=== PATIENT | male | born 1950 | race Caucasian/White ===

== ENCOUNTER 2017-09-07 19:05 | Inpatient (IN) | payer MEDICARE, OTHER ==
[~2017-09-07] VITALS: Ht 177.8 cm; Wt 85.9 kg
[~2017-09-07 19:05] MED LIST: AC500T PO; ALLO300T2 PO; ALLOPURINOL PO; BISO1TAB3 PO; CHOL2000 PO; CPR500T PO; EZET10TA5 PO; FNST5T PO; FOLI1TAB7; HCTZ12.5T PO; HYDR50TA3 PO; KCL20TCR; MAGN400T6 PO; MULT-1029 PO; OXYC-12 PO; PANT40TA PO; POTA10CA43 PO; PRAS10TA6 PO; PRM25T PO; VYTORIN
--- OUTSIDE RECORDS SUMMARY | 2017-09-07 19:12 | XMS REPORT | Continuity of Care Document ---
Author Author [facility] Organization [facility] Address Unknown Phone Unavailable Allergies Medications Problems Procedures Results Encounters ACCT No. Visit Date/Time Discharge Status Pt. Type Provider Facility Loc./Unit Complaint [id number] 12/23/2013 08:40:00 2013 23:59:59 CLS Outpatient [id number] 12/20/2013 12:02:00 2013 23:59:59 CLS Outpatient [id number] 12/20/2013 10:13:00 2013 23:59:59 CLS Outpatient [id number] 11/02/2013 14:51:00 2013 13:30:00 DIS Inpatient [id number] 09/20/2013 08:17:00 2012 23:59:59 CLS Outpatient [id number] 08/26/2013 12:15:00 2012 14:49:00 DIS Outpatient [id number] 08/18/2013 16:04:00 2012 23:59:59 CLS Outpatient [id number] 06/02/2013 10:23:00 2012 23:59:59 CLS Outpatient
[2017-09-07] MEDS ORDERED: KETOROLAC 30 MG/ML VIAL IVP ONE (20:00)
[2017-09-07] MEDS ORDERED: fentaNYL INJECTION 100 MCG/2 ML AMP IVP ONE ×2 (20:00→20:30)
--- NOTE | 2017-09-07 20:01 | ED Lower Extremity ---
General Chief Complaint: Lower Extremity Stated Complaint: R FOOT INJ Nursing Triage Note: RIGHT ANKLE PAIN/SWELLING AFTER TRIPPING DOWN 1 STEP. Nursing Sepsis Screen: No Definite Risk Source: patient Exam Limitations: no limitations History of Present Illness Time seen by provider: 20:00 Initial Comments To ER with right ankle pain and swelling after tripping down one step at home. Foot everted Onset: just prior to arrival Severity: moderate Pain/Injury Location: right foot Method of Injury: fell Modifying Factors: Worse With Movement Allergies and Home Medications Allergies Coded Allergies: Tetracycline (Verified Allergy, Unknown, 09/03/09) Home Medications Acetaminophen 500 Mg Tablet, 1,000 MG PO Q4H PRN for PAIN, (Reported) TAKES 2 (500MG) TABLETS NEEDED FOR PAIN Allopurinol 300 Mg Tab, 300 MG PO DAILY, (Reported) Bisoprol/Hydrochlorothiazide 1 Tab Tablet, 1 TAB PO DAILY, (Reported) 5-6.25MG TABLET Cholecalciferol 2,000 Unit Capsule, 2,000 UNIT PO DAILY, (Reported) Ezetimibe 10 Mg Tablet, 10 MG PO HS, (Reported) Finasteride 5 Mg Tab, 5 MG PO DAILY, (Reported) Hydrochlorothiazide 50 Mg Tablet, 50 MG PO DAILY, (Reported) Magnesium Oxide 400 Mg Tablet, 400 MG PO DAILY, (Reported) Mu-Vits-Min Th/Lycopene/Lutein 1 Each Tablet, 1 TAB PO DAILY, (Reported) Pantoprazole Sodium 40 Mg Tablet.dr, 40 MG PO DAILY, (Reported) Potassium Chloride 10 Meq Capsule.sa, 20 MEQ PO DAILY, (Reported) TAKES 2 (10MEQ) CAPSUELS EVERY MORNING AND TAKES 1 (10MEQ) CAPSULE AT NIGHT Potassium Chloride 10 Meq Capsule.sa, 10 MEQ PO HS, (Reported) TAKES 2 (10MEQ) CAPSUELS EVERY MORNING AND TAKES 1 (10MEQ) CAPSULE AT NIGHT Prasugrel Hydrochloride 10 Mg Tablet, 10 MG PO DAILY, (Reported) Constitutional: see HPI EENTM: see HPI Respiratory: no symptoms reported Cardiovascular: no symptoms reported Genitourinary: no symptoms reported Musculoskeletal: no symptoms reported Skin: no symptoms reported Psychiatric/Neurological: No Symptoms Reported Past Xqczrgt-Clkjyz-Nohryo Hx Patient Social History Alcohol Use: Occasionally Uses Number of Drinks Today: 0 Alcohol Beverage of Choice: Scotch Recreational Drug Use: No Smoking Status: Never a Smoker 2nd Hand Smoke Exposure: No Recent Foreign Travel: No Contact w/Someone Who Travel: No Recent Infectious Disease Expo: No Recent Hopitalizations: No Immunizations Up To Date Tetanus Booster (TDap): Less than 5yrs Date of Pneumonia Vaccine: Nov 02, 2011 Seasonal Allergies Seasonal Allergies: No Surgeries History of Surgeries: Yes (STONE BASKET RETRIEVAL STONES, ABDOMINAL LESION) Surgeries: Coronary Stent Respiratory History of Respiratory Disorde: No Cardiovascular History of Cardiac Disorders: Yes (BBB, STENT X1) Cardiac Disorders: Hypertension Neurological History of Neurological Disord: No Reproductive System Hx Reproductive Disorders: No Genitourinary History of Genitourinary Disor: Yes Genitourinary Disorders: Benign Prostatic Hyperpl, Kidney Stones Gastrointestinal History of Gastrointestinal Di: Yes Gastrointestinal Disorders: Gastroesophageal Reflux Musculoskeletal History of Musculoskeletal Dis: Yes (HIP NERVE CAUSES TINGLING IN L LEG) Endocrine History of Endocrine Disorders: No HEENT History of HEENT Disorders: No Cancer 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) Psychosocial History of Psychiatric Problem: No Integumentary History of Skin or Integumenta: No Blood Transfusions History of Blood Disorders: No Physical Exam Vital Signs Vital Sign - Last 12Hours 09/07/17 19:51 Temp 98.7 Pulse 83 Resp 18 B/P (MAP) 161/77 Pulse Ox 95 O2 Delivery Room Air Capillary Refill : Less Than 3 Seconds General Appearance: WD/WN, no apparent distress HEENT: PERRL/EOMI, normal ENT inspection Neck: non-tender, full range of motion Respiratory: no respiratory distress, no accessory muscle use Gastrointestinal: non tender, soft Hips: bilateral hip non-tender, bilateral hip normal inspection, bilateral hip normal range of motion Legs: bilateral leg non-tender, bilateral leg normal inspection, bilateral leg normal range of motion Knees: bilateral knee non-tender, bilateral knee normal inspection, bilateral knee normal range of motion Ankles: right ankle pain, right ankle soft tissue tenderness Feet: bilateral foot non-tender, bilateral foot normal inspection, bilateral foot normal range of motion Neurologic/Psychiatric: alert, normal mood/affect, oriented x 3 Skin: normal color, warm/dry Comments He is able to wiggle his toes. The dorsalis pedis pulse is +2 in strength. He does have ecchymosis and deformity to the right ankle. There is no bleeding or evidence of an open fracture. Progress/Results/Core Measures Results/Orders Lab Results Laboratory Tests Test 09/07/17 19:58 Range/Units White Blood Count 12.9 H 4.3-11.0 10^3/uL Red Blood Count 5.49 4.35-5.85 10^6/uL Hemoglobin 15.0 13.3-17.7 G/DL Hematocrit 44 40-54 % Mean Corpuscular Volume 81 80-99 FL Mean Corpuscular Hemoglobin 27 25-34 PG Mean Corpuscular Hemoglobin Concent 34 32-36 G/DL Red Cell Distribution Width 14.5 10.0-14.5 % Platelet Count 298 130-400 10^3/uL Mean Platelet Volume 9.7 7.4-10.4 FL Neutrophils (%) (Auto) 60 42-75 % Lymphocytes (%) (Auto) 30 12-44 % Monocytes (%) (Auto) 8 0-12 % Eosinophils (%) (Auto) 1 0-10 % Basophils (%) (Auto) 1 0-10 % Neutrophils # (Auto) 7.8 1.8-7.8 X 10^3 Lymphocytes # (Auto) 3.9 1.0-4.0 X 10^3 Monocytes # (Auto) 1.1 H 0.0-1.0 X 10^3 Eosinophils # (Auto) 0.1 0.0-0.3 10^3/uL Basophils # (Auto) 0.1 0.0-0.1 10^3/uL Sodium Level 140 135-145 MMOL/L Potassium Level 3.1 L 3.6-5.0 MMOL/L Chloride Level 104 98-107 MMOL/L Carbon Dioxide Level 22 21-32 MMOL/L Anion Gap 14 5-14 MMOL/L Blood Urea Nitrogen 21 H 7-18 MG/DL Creatinine 0.93 0.60-1.30 MG/DL Estimat Glomerular Filtration Rate > 60 BUN/Creatinine Ratio 23 Glucose Level 119 H 70-105 MG/DL Calcium Level 9.7 8.5-10.1 MG/DL My Orders Orders - MERLE ORTIZ APRN Saline Lock/Iv-Start (09/07/17 19:59) Cbc With Automated Diff (09/07/17 19:59) Basic Metabolic Panel (09/07/17 19:59) Fentanyl Injection (Sublimaze Injection (09/07/17 20:00) Ketorolac Injection (Toradol Injection) (09/07/17 20:00) Ankle, Right, 3 Views (09/07/17 20:03) Medications Given in ED Current Medications Medications Dose Ordered Sig/Stefanie Route Start Time Stop Time Status Last Admin Dose Admin Fentanyl Citrate 50 mcg ONCE ONCE IVP 09/07/17 20:00 09/07/17 20:01 DC 09/07/17 20:13 50 MCG Ketorolac Tromethamine 30 mg ONCE ONCE IVP 09/07/17 20:00 09/07/17 20:01 DC 09/07/17 20:12 30 MG Vital Signs/I&O Vital Sign - Last 12Hours 09/07/17 19:51 Temp 98.7 Pulse 83 Resp 18 B/P (MAP) 161/77 Pulse Ox 95 O2 Delivery Room Air Blood Pressure Mean: 105 Diagnostic Imaging Diagonstic Imaging: CT Comments NAME: XAVIER SOLO [facility] REC#: [id number] PT STATUS: REG ER : 1950 PHYSICIAN: MERLE ORTIZ APRN ADMIT DATE: 09/07/17/ER Draft Date of Exam:09/07/17 ANKLE, RIGHT, 3 VIEWS INDICATION: Right ankle pain after falling on steps. TECHNIQUE: Three views of the right ankle. CORRELATION STUDY: None. FINDINGS: Predominantly obliquely oriented fracture of the distal fibular shaft. There is significant lateral displacement greater than the width of the bone and retraction along the fracture line. There is a transversely oriented fracture of the medial malleolus. The distal medial malleolus fracture is displaced significantly laterally. There is also what appears to be a nondisplaced vertically oriented fracture of the posterior distal tibia. There is lateral displacement of the talus in regards to the distal tibia of approximately 2 cm. Slight anterior positioning of the talus in regards to the distal tibia. Benign-appearing sclerosis of the distal tibia. Associated soft tissue swelling. IMPRESSION: Displaced trimalleolar ankle fracture dislocation. Associated soft tissue swelling. Dictated on workstation # [id number] Dict: 09/07/172011 Trans: 09/07/172021 [facility] [id number] Interpreted by: SALVADOR KWONG DO Electronically signed by: Departure Communication (Admissions) Time/Spoke to Admitting Phy: 20:50 Communication I did discuss the case with Dr. Barr. He agrees to admit the patient, I will reduce the ankle here in the emergency room, we will splint, admit for pain control and tentative plan for ORIF ankle tomorrow. Progress Notes 2050-I did do a conscious sedation using 20 mg of etomidate, traction was applied to the foot with apparent reduction. Foot was splinted using a posterior short leg and stirrup style splint. Postreduction x-rays to confirm reduction. Maintains brisk capillary refill in the toes after reduction. Impression Impression: Primary Impression: Fracture dislocation of right ankle Disposition: ADMITTED INPATIENT Condition: Improved Admissions Decision to Admit Reason: Admit from ER (General) Decision to Admit/Date: Sep 07, 2017 Time/Decision to Admit Time: 20:51 Departure-Patient Inst. Decision time for Depature: 20:12 Referrals: NOELLE DODSON MD (PCP/Family) Primary Care Physician MERLE ORTIZ APRN Sep 07, 2017 20:01
[2017-09-07 20:03] LABS: BASOPHILS # (AUTO) 0.1 10^3/uL (0.0-0.1); BASOPHILS % (AUTO) 1 % (0-10); EOSINOPHILS # (AUTO) 0.1 10^3/uL (0.0-0.3); EOSINOPHILS % (AUTO) 1 % (0-10); LYMPHOCYTES # (AUTO) 3.9 X 10^3 (1.0-4.0); LYMPHOCYTES % (AUTO) 30 % (12-44); MEAN CORPUSCULAR HEMOGLOBIN 27 PG (25-34); MEAN CORPUSCULAR HGB CONC 34 G/DL (32-36); MEAN CORPUSCULAR VOLUME 81 FL (80-99); MEAN PLATELET VOLUME 9.7 FL (7.4-10.4); MONOCYTES # (AUTO) 1.1 X 10^3 (0.0-1.0); MONOCYTES % (AUTO) 8 % (0-12); NEUTROPHILS # (AUTO) 7.8 X 10^3 (1.8-7.8); NEUTROPHILS % (AUTO) 60 % (42-75); PLATELET COUNT 298 10^3/uL (130-400); RED BLOOD COUNT 5.49 10^6/uL (4.35-5.85); RED CELL DISTRIBUTION WIDTH 14.5 % (10.0-14.5); WHITE BLOOD COUNT 12.9 10^3/uL (4.3-11.0)
[2017-09-07 20:17] LABS: ANION GAP 14 MMOL/L (5-14); BLOOD UREA NITROGEN 21 MG/DL (7-18); BUN/CREATININE RATIO 23; CALCIUM 9.7 MG/DL (8.5-10.1); CARBON DIOXIDE 22 MMOL/L (21-32); CHLORIDE 104 MMOL/L (98-107); CREATININE SERUM 0.93 MG/DL (0.60-1.30); GFR ESTIMATED > 60; GLUCOSE 119 MG/DL (70-105); POTASSIUM 3.1 MMOL/L (3.6-5.0); SODIUM 140 MMOL/L (135-145)
--- NOTE | 2017-09-07 20:22 | Diagnostic Imaging Report ---
INDICATION: Right ankle pain after falling on steps. TECHNIQUE: Three views of the right ankle. CORRELATION STUDY: None. FINDINGS: Predominantly obliquely oriented fracture of the distal fibular shaft. There is significant lateral displacement greater than the width of the bone and retraction along the fracture line. There is a transversely oriented fracture of the medial malleolus. The distal medial malleolus fracture is displaced significantly laterally. There is also what appears to be a nondisplaced vertically oriented fracture of the posterior distal tibia. There is lateral displacement of the talus in regards to the distal tibia of approximately 2 cm. Slight anterior positioning of the talus in regards to the distal tibia. Benign-appearing sclerosis of the distal tibia. Associated soft tissue swelling. IMPRESSION: Displaced trimalleolar ankle fracture dislocation. Associated soft tissue swelling. Dictated by: Dictated on workstation # [id number]
[2017-09-07] MEDS ORDERED: NS IV 500 ML 500 ML IV SCH (20:30)
[2017-09-07] MEDS ORDERED: ETOMIDATE IV SOLN 20 MG/10 ML VIAL IV ONE (20:30)
[2017-09-07] MEDS ORDERED: ONDANSETRON 4 MG/2 ML (SDV) Z0FRAN ONE (20:47)
[2017-09-07] MEDS ORDERED: ONDANSETRON 4 MG/2 ML (SDV) Z0FRAN IVP ONE (21:00)
--- NOTE | 2017-09-07 21:02 | Diagnostic Imaging Report ---
INDICATION: Fracture dislocation, postreduction TECHNIQUE: Three views of the right ankle 8:49 PM CORRELATION STUDY: 09/07/2017 FINDINGS: Cast material has been placed. Trimalleolar fracture is again demonstrated. However, alignment is improved on post reduction imaging. The tibiotalar relationship also appears to be improved. Soft tissue swelling is present. IMPRESSION: Trimalleolar fracture present. Alignment significantly improved on post reduction imaging. Dictated by: Dictated on workstation # [id number]
[2017-09-07] MEDS ORDERED: ONDANSETRON 4 MG/2 ML (SDV) Z0FRAN IV PRN (22:00)
[2017-09-07] MEDS: NS W/KCL 40 MEQ/L 1,000 ML IV SCH (22:18)
[2017-09-08 00:44] VITALS: BP 123/69
[2017-09-08] MEDS: fentaNYL INJECTION 100 MCG/2 ML AMP IV PRN ×4 (02:01→16:39)
[2017-09-08 04:10] VITALS: BP 126/66
[2017-09-08] MEDS: NS W/KCL 40 MEQ/L 1,000 ML IV SCH (06:33)
[2017-09-08] MEDS ORDERED: CATHETER FLUSH 10 ML SYR IV PRN (07:00)
[2017-09-08] MEDS ORDERED: INFLUENZA TRIvalent 2017-2018 0.5 ML/45 MCG SYR IM ONE (07:00)
--- NOTE | 2017-09-08 07:12 | History & Physicial ---
History of Present Illness History of Present Illness Reason for visit/HPI Right ankle injury Mr. Grayson is a 67 y/o white male who reportedly tripped, at home, on 2 steps. He states that his right foot everted and he immediately noted pain and deformity. He was brought to [facility] ER, where multiple x-rays were taken. A displaced trimalleolar fracture was identified. Patient underwent reduction with sedation, and was placed in a splint. Patient was admitted for Ortho evaluation and treatment. Date of Admission Sep 07, 2017 at 20:23 Date Seen by Provider: Sep 08, 2017 Time Seen by Provider: 07:07 I consulted on this patient on 09/08/17 07:07 Attending Physician Alex Barr MD Admitting Physician Giovanni Mandel MD Consult Allergies and Home Medications Allergies Coded Allergies: tetracycline (Verified Allergy, Unknown, 09/03/09) Home Medications Acetaminophen 500 Mg Tablet, 1,000 MG PO Q4H PRN for PAIN, (Reported) TAKES 2 (500MG) TABLETS NEEDED FOR PAIN Allopurinol 300 Mg Tab, 300 MG PO DAILY, (Reported) Bisoprol/Hydrochlorothiazide 1 Tab Tablet, 1 TAB PO DAILY, (Reported) 5-6.25MG TABLET Cholecalciferol 2,000 Unit Capsule, 2,000 UNIT PO DAILY, (Reported) Ezetimibe 10 Mg Tablet, 10 MG PO HS, (Reported) Finasteride 5 Mg Tab, 5 MG PO DAILY, (Reported) Hydrochlorothiazide 50 Mg Tablet, 50 MG PO DAILY, (Reported) Magnesium Oxide 400 Mg Tablet, 400 MG PO DAILY, (Reported) Mu-Vits-Min Th/Lycopene/Lutein 1 Each Tablet, 1 TAB PO DAILY, (Reported) Pantoprazole Sodium 40 Mg Tablet.dr, 40 MG PO DAILY, (Reported) Potassium Chloride 10 Meq Capsule.sa, 20 MEQ PO DAILY, (Reported) TAKES 2 (10MEQ) CAPSUELS EVERY MORNING AND TAKES 1 (10MEQ) CAPSULE AT NIGHT Potassium Chloride 10 Meq Capsule.sa, 10 MEQ PO HS, (Reported) TAKES 2 (10MEQ) CAPSUELS EVERY MORNING AND TAKES 1 (10MEQ) CAPSULE AT NIGHT Prasugrel Hydrochloride 10 Mg Tablet, 10 MG PO DAILY, (Reported) Past Kiuzbma-Uefpav-Hcscvi Hx Patient Social History Marrital Status: single Employed/Student: employed Alcohol Use: Occasionally Uses Number of Drinks Today: EE Alcohol Beverage of Choice: Scotch Recreational Drug Use: No Smoking Status: Never a Smoker 2nd Hand Smoke Exposure: No Physical Abuse Screen: No Sexual Abuse: No Recent Foreign Travel: No Contact w/other who traveled: No Recent Hopitalizations: No Recent Infectious Disease Expo: No Immunizations Up To Date Tetanus Booster (TDap): Less than 5yrs Date of Pneumonia Vaccine: Nov 02, 2011 Seasonal Allergies Seasonal Allergies: No Surgeries Yes (STONE BASKET RETRIEVAL STONES, ABDOMINAL LESION) Coronary Stent Respiratory No Currently Using CPAP: No Currently Using BIPAP: No Cardiovascular Yes (BBB, STENT X1) Hypertension Neurological No Reproductive System Hx Reproductive Disorders: No Genitourinary Yes Benign Prostatic Hyperpl, Kidney Stones Gastrointestinal Yes Gastroesophageal Reflux Musculoskeletal No Endocrine History of Endocrine Disorders: No HEENT History of HEENT Disorders: No Cancer No Psychosocial History of Psychiatric Problem: No Integumentary History of Skin or Integumenta: No Blood Transfusions History of Blood Disorders: No Constitutional: no symptoms reported EENTM: no symptoms reported Respiratory: No cough, No hemoptysis, No short of breath Cardiovascular: No chest pain, Hx of Intervention Gastrointestinal: No nausea, No vomiting Musculoskeletal: see HPI Skin: see HPI Psychiatric/Neurological: No Symptoms Reported Physical Exam Vital Signs Vital Sign - Last 12Hours 09/07/17 19:51 Temp 98.7 Pulse 83 Resp 18 B/P (MAP) 161/77 Pulse Ox 95 O2 Delivery Room Air Capillary Refill : Less Than 3 SecondsLess Than 3 Seconds General Appearance: No Apparent Distress, WD/WN Eyes: Bilateral Eye Normal Inspection, Bilateral Eye PERRL Neck: Full Range of Motion Respiratory: No Accessory Muscle Use, No Respiratory Distress Cardiovascular: No Edema, Normal Peripheral Pulses Gastrointestinal: Non Tender, Soft Rectal: Deferred Back: No Decreased Range of Motion Extremity: Other (Right ankle splinted. Moves toes. 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
[2017-09-08 08:00] VITALS: BP 131/69
--- NOTE | 2017-09-08 08:00 | Progress Note-Pre Operative ---
Pre-Operative Progress Note H&P Reviewed The H&P was reviewed, patient examined and no changes noted. Date Seen by Provider: Sep 08, 2017 Time Seen by Provider: 08:00 Date H&P Reviewed: Sep 08, 2017 Time H&P Reviewed: 08:00 Pre-Operative Diagnosis: Right Closed TriMalleolar Ankle fracture CASEY HATFIELD MD Sep 08, 2017 8:00 am
[2017-09-08] MEDS ORDERED: PRAS10TA6 PO (09:09)
[2017-09-08] MEDS ORDERED: ALLO300T2 PO (09:09)
[2017-09-08] MEDS ORDERED: ACET-168 PO (09:09)
[2017-09-08] MEDS ORDERED: POTA10CA43 PO (09:09)
[2017-09-08] MEDS ORDERED: BISO1TAB3 PO (09:09)
[2017-09-08] MEDS ORDERED: MAGN400T6 PO (09:09)
[2017-09-08] MEDS ORDERED: FINA5TAB6 PO (09:09)
[2017-09-08] MEDS ORDERED: MULT-1029 PO (09:09)
[2017-09-08] MEDS ORDERED: TR1C15 TOP (09:09)
[2017-09-08] MEDS ORDERED: CHOL20003 PO (09:09)
[2017-09-08] MEDS ORDERED: PANT40TA3 PO (09:09)
[2017-09-08] MEDS ORDERED: EZET1TAB65 PO (09:09)
[2017-09-08] MEDS ORDERED: HYDR25TA4 PO (09:24)
[2017-09-08] MEDS ORDERED: HYDR50TA3 PO (09:24)
[2017-09-08] MEDS ORDERED: BUP/EPI 0.5% 1:200,000 (MARCAINE) 10ML VIAL IJ ONE (11:13)
[2017-09-08] MEDS ORDERED: ceFAZolin 2 GM/50 ML NS 50 ML IV ONE (11:30)
[2017-09-08] MEDS ORDERED: DEXAMETHASONE 10 MG/ML (DECADRON) 1 ML VIAL ONE (11:34)
[2017-09-08] MEDS ORDERED: fentaNYL INJECTION 250 MCG/5 ML AMP ONE (11:34)
[2017-09-08] MEDS ORDERED: LIDOCAINE PF 2% 5 ML (XYLOCAINE) VIAL ONE (11:34)
[2017-09-08] MEDS ORDERED: MIDAZOLAM 2 MG/2 ML (VERSED) VIAL ONE (11:34)
[2017-09-08] MEDS ORDERED: proPOfol 200 MG/20 ML (DIPRIVAN) VIAL IV ONE (11:34)
[2017-09-08] MEDS ORDERED: ONDANSETRON 4 MG/2 ML (SDV) Z0FRAN ONE ×2 (11:34→13:01)
[2017-09-08] MEDS: LACTATED RINGERS 1,000 ML IV SCH ×2 (11:55→13:00)
[2017-09-08] MEDS ORDERED: ONDANSETRON 4 MG/2 ML (SDV) Z0FRAN IV PRN (12:30)
[2017-09-08] MEDS ORDERED: APAP 300 MG/CODEINE 30 MG (TYLENOL #3) TAB PO PRN (12:30)
[2017-09-08] MEDS ORDERED: FAMOTIDINE 20MG/2ML IV (PEPCID) ONE (12:40)
[2017-09-08] MEDS ORDERED: PROPOFOL INJECTION 100 ML IV ONE (12:55)
--- NOTE | 2017-09-08 13:27 | Progress Note-Post Operative ---
Post-Operative Progess Note Surgeon (s)/Conventions Reservationist (s) Surgeon CASEY HATFIELD MD Conventions Reservationist: KEEGAN De Santiago Pre-Operative Diagnosis Right Closed TriMalleolar Ankle fracture Post-Operative Diagnosis Same Procedure & Operative Findings Date of Procedure 09/08/17 Procedure Performed/Findings ORIF Right Trimalleolar Ankle fracture, w/o posterior lip Anesthesia Type GETA Estimated Blood Loss Estimated blood loss (mL): 50 Specimens/Packing Specimens Removed none CASEY HATFIELD MD Sep 08, 2017 1:27 pm
[2017-09-08] MEDS ORDERED: ONDANSETRON 4 MG/2 ML (SDV) Z0FRAN IVP PRN (13:45)
[2017-09-08] MEDS: morphine INJ 10 MG/ML 1ML (SYR OR VIAL) IVP PRN ×3 (14:00→14:08)
--- NOTE | 2017-09-08 14:30 | Physical Therapy Evaluation ---
PT Evaluation-General Medical Diagnosis Admission Date Sep 07, 2017 at 20:23 Medical Diagnosis: right trimalleolar fracture/dislocation Onset Date: Sep 07, 2017 Therapy Diagnosis Therapy Diagnosis: debility Height/Weight Height (Feet): 5 Height (Inches): 10.00 Weight (Pounds): 189 Weight (Ounces): 6.0 Precautions Precautions/Isolations: Standard Precautions Weight Bear Status Right Lower Extremity: Right Non Weight Bearing Left Lower Extremity: Left Full Weight Bearing Referral Physician: Cortney Reason for Referral: Evaluation/Treatment Medical History Pertinent Medical History: GERD, HTN Additional Medical History recurrent sarcoma Current History tripped and fell down 1 step resulting in injury Reviewed History: Yes Social History Home: Apartment Current Living Status: Alone Entry Into Home: Stairs With Railing Prior/Core FIM Prior Level of Function Functional Evans Measure 0=Not Assessed/NA 4=Minimal Assistance 1=Total Assistance 5=Supervision or Setup 2=Maximal Assistance 6=Modified Evans 3=Moderate Assistance 7=Complete Evans Bed Mobility: 7 Transfers (B,C,W/C) (FIM): 7 Gait: 7 Locomotion: 7 PT Evaluation-Current Transfers Functional Evans Measure 0=Not Assessed/NA 4=Minimal Assistance 1=Total Assistance 5=Supervision or Setup 2=Maximal Assistance 6=Modified Evans 3=Moderate Assistance 7=Complete Evans SLADE RAHMAN PT Sep 08, 2017 14:30
--- NOTE | 2017-09-08 14:36 | Diagnostic Imaging Report ---
EXAMINATION: Three views of the right ankle intraoperative views. INDICATION: Internal fixation of distal tibial and fibular fractures. FLUOROSCOPIC TIME: The fluoroscopy time provided to the OR was 18 seconds. IMPRESSION: Plate and screw fixation of the distal fibula and screw fixation of the medial malleolus fractures are seen in good alignment. Dictated by: Dictated on workstation # [id number]
[2017-09-08 14:54] VITALS: BP 142/74
[2017-09-08] MEDS: NS IV 1000 ML 1,000 ML IV SCH (14:55)
--- NOTE | 2017-09-08 15:22 | Physical Therapy Progress Note ---
Therapy Progress Note Patient just returned to room from surgery and is too sedated and unsafe to participate with PT at this time. PT will evaluate patient in SLADE Klein PT Sep 08, 2017 15:21
[2017-09-08 16:08] VITALS: BP 156/81
[2017-09-08] MEDS: HYDROcodone/APAP 5 MG/325 MG (LORTAB) TAB PO PRN (17:11)
[2017-09-08 20:00] VITALS: BP 143/73
[2017-09-08] MEDS: ceFAZolin 2 GM/50 ML NS 50 ML IV SCH (20:55)
[2017-09-08] MEDS: DOCUSATE SODIUM 100 MG (COLACE) CAP PO SCH (20:55)
[2017-09-09] VITALS (7 sets, daily range): BP systolic 126–156; BP diastolic 63–86
--- NOTE | 2017-09-09 01:18 | OPERATIVE REPORT ---
DATE OF SERVICE: 09/08/2017 PREOPERATIVE DIAGNOSIS: Right closed trimalleolar ankle fracture. POSTOPERATIVE DIAGNOSIS: Right closed trimalleolar ankle fracture. PROCEDURE PERFORMED: Open reduction internal fixation of trimalleolar ankle fracture without fixation of the posterior malleolus. DATE AND TIME OF SURGERY: Please see anesthesia record. IMPLANTS USED: Synthes small fragments and cannulated screws. SURGEON: Casey Barr MD API DEVELOPER: BALTA De Santiago. ROLE OF COMMUNICATIONS AND SIGNALS SUPERVISOR: Aid in retraction of the procedure, aid in implantation, instrumentation and wound closure. ANESTHESIA: General endotracheal. ESTIMATED BLOOD LOSS: Minimal. INTRAVENOUS FLUIDS: Please see anesthesia record. ANTIBIOTICS: Ancef. COMPLICATIONS: None. TOURNIQUET TIME: 45 minutes. INDICATION FOR PROCEDURE: The patient is a 67-year-old male, fell yesterday sustaining a trimalleolar ankle fracture. Risks, benefits, alternatives discussed and he elected to proceed with operative intervention. DESCRIPTION OF PROCEDURE: The patient was taken to the preoperative holding area and brought back to the operative suite. After adequate induction of general anesthesia, preoperative antibiotics, placed supine on the OR table. The ankle was prepped and draped in standard lateral approach. The distal fibula was carried out. Reduction was achieved, it was held with a bone clamp. An 8-hole 1/3 tubular plate was affixed to the distal fibula with great reduction achieved and maintained. Syndesmosis was stable. Small incision was made over the medial malleolus. It was reduced anatomically and two guidewires were placed for the cannulated screws and then two 4-0, 48 mm partially threaded screws were placed across the medial malleolus holding it anatomically as well. Once final imaging was obtained of the fracture, it was reduced anatomically. Wounds were irrigated, closed in layers. The patient transferred to recovery room in stable condition and tolerated the procedure well. Job ID: [id number] DocumentID: [id number] Dictated Date: 09/08/2017 13:26:20 Switchboard Operator Helper Date: 09/09/2017 01:17:17 Dictated By: CASEY BARR MD
[2017-09-09] MEDS: NS IV 1000 ML 1,000 ML IV SCH ×4 (01:34→23:09)
[2017-09-09] MEDS: ceFAZolin 2 GM/50 ML NS 50 ML IV SCH ×2 (04:16→12:24)
[2017-09-09 06:29] LABS: BASOPHILS % (AUTO) 0 % (0-10); EOSINOPHILS % (AUTO) 0 % (0-10); LYMPHOCYTES # (AUTO) 1.4 X 10^3 (1.0-4.0); LYMPHOCYTES % (AUTO) 12 % (12-44); MEAN CORPUSCULAR HEMOGLOBIN 27 PG (25-34); MEAN CORPUSCULAR HGB CONC 33 G/DL (32-36); MEAN CORPUSCULAR VOLUME 82 FL (80-99); MEAN PLATELET VOLUME 9.8 FL (7.4-10.4); MONOCYTES # (AUTO) 1.1 X 10^3 (0.0-1.0); MONOCYTES % (AUTO) 10 % (0-12); NEUTROPHILS # (AUTO) 8.6 X 10^3 (1.8-7.8); NEUTROPHILS % (AUTO) 78 % (42-75); PLATELET COUNT 212 10^3/uL (130-400); RED BLOOD COUNT 4.21 10^6/uL (4.35-5.85); RED CELL DISTRIBUTION WIDTH 14.3 % (10.0-14.5); WHITE BLOOD COUNT 11.1 10^3/uL (4.3-11.0)
[2017-09-09] MEDS: DOCUSATE SODIUM 100 MG (COLACE) CAP PO SCH ×2 (09:06→20:56)
--- NOTE | 2017-09-09 09:30 | Consultation ---
History of Present Illness History of Present Illness Patient Consulted On(colten/time) 09/09/17 09:16 Date Seen by Provider: Sep 09, 2017 Time Seen by Provider: 07:45 History of Present Illness This is a 67 year old male who was seen with Dr. Lira. This gentleman is known to us. He reports that on Friday evening 09/07/17 he was walking out of his house going down approx. 2 steps when he fell developing pain and swelling. He was brought to [facility] ER when he was found to have a fracture of the right ankle and underwent surgery yesterday to repair the fracture. He reports that last night he had a BM and also had some red blood in his stool. This gentleman had a colonoscopy performed by us 2 weeks ago and was found to have chronic stage 2-3 external and internal hemorrhoids as well as a rectal polyp which was benign. He does have a history of stents and is on anticoagulation at home. He reports that after his colonoscopy he was off his anticoagulation for a week and the bleeding stopped, however he restarted it one week ago and reports that on Friday before his accident he did have an episode of bright red bleeding. He has doing a high fiber diet at home as well as increasing his fluids. He reports that he has not had a BM since last night and reports that otherwise he is doing well. He says that he has not had to strain to have a BM. He denies any N/V, abdominal pain, diarrhea/constipation, fever/chills. He reports that he has not had much to eat but has not been real hungry. Allergies and Home Medications Allergies Coded Allergies: tetracycline (Verified Allergy, Unknown, 09/03/09) Home Medications Acetaminophen 500 Mg Tablet, 1,000 MG PO Q4H PRN for PAIN-MILD, (Reported) TAKES 2 (500MG) TABLETS Allopurinol 300 Mg Tablet, 300 MG PO DAILY, (Reported) Bisoprolol Fumarate/Hctz 1 Each Tablet, 1 TAB PO DAILY, (Reported) Cholecalciferol (Vitamin D3) 2,000 Unit Capsule, 2,000 UNIT PO DAILY, (Reported) Ezetimibe/Simvastatin 1 Each Tablet, 1 TAB PO HS, (Reported) Finasteride 5 Mg Tablet, 5 MG PO MoWeFr, (Reported) Hydrochlorothiazide 25 Mg Tablet, 25 MG PO DAILY, (Reported) Magnesium Oxide 400 Mg Tablet, 400 MG PO DAILY, (Reported) Multivit-Min/FA/Lycopene/Lut 1 Each Tablet, 1 TAB PO DAILY, (Reported) Pantoprazole Sodium 40 Mg Tablet.dr, 40 MG PO DAILY, (Reported) Potassium Chloride 10 Meq Capsule.er, 20 MEQ PO BID, (Reported) TAKES 2 (10MEQ) CAPSULES Prasugrel HCl 10 Mg Tablet, 10 MG PO DAILY, (Reported) Triamcinolone Acet 15 Gm Cr, TOP BID, (Reported) Past Qgwvkbn-Wiowfj-Ivgmqt Hx Patient Social History Alcohol Use: Occasionally Uses Number of Drinks Today: EE Alcohol Beverage of Choice: Scotch Recreational Drug Use: No Smoking Status: Never a Smoker 2nd Hand Smoke Exposure: No Recent Foreign Travel: No Contact w/Someone Who Travel: No Recent Infectious Disease Expo: No Recent Hopitalizations: No Immunizations Up To Date Tetanus Booster (TDap): Less than 5yrs Date of Pneumonia Vaccine: Nov 02, 2011 Seasonal Allergies Seasonal Allergies: No Surgeries History of Surgeries: Yes (STONE BASKET RETRIEVAL STONES, ABDOMINAL LESION) Surgeries: Coronary Stent Respiratory History of Respiratory Disorde: No Currently Using CPAP: No Currently Using BIPAP: No Cardiovascular History of Cardiac Disorders: Yes (BBB, STENT X1) Cardiac Disorders: Hypertension Neurological History of Neurological Disord: No Reproductive System Hx Reproductive Disorders: No Genitourinary History of Genitourinary Disor: Yes Genitourinary Disorders: Benign Prostatic Hyperpl, Kidney Stones Gastrointestinal History of Gastrointestinal Di: Yes Gastrointestinal Disorders: Gastroesophageal Reflux Musculoskeletal History of Musculoskeletal Dis: No Endocrine History of Endocrine Disorders: No HEENT History of HEENT Disorders: No Cancer History of Cancer: No Psychosocial History of Psychiatric Problem: No Integumentary History of Skin or Integumenta: No Blood Transfusions History of Blood Disorders: No Review of Systems-General Constitutional: no symptoms reported EENTM: no symptoms reported Respiratory: no symptoms reported Gastrointestinal: see HPI Genitourinary: no symptoms reported Musculoskeletal: other (Right ankle fracture but only reports minimal discomfort.) Skin: no symptoms reported Psychiatric/Neurological: No Symptoms Reported Physical Exam-General Problems Physical Exam Vital Signs Vital Sign - Last 12Hours 09/07/17 19:51 Temp 98.7 Pulse 83 Resp 18 B/P (MAP) 161/77 Pulse Ox 95 O2 Delivery Room Air Capillary Refill : Less Than 3 SecondsLess Than 3 Seconds General Appearance: WD/WN, no apparent distress HEENT: PERRL/EOMI Neck: non-tender, full range of motion, supple, normal inspection Respiratory: chest non-tender, lungs clear, normal breath sounds, no respiratory distress, no accessory muscle use Cardiovascular: normal peripheral pulses, regular rate, rhythm, no edema Gastrointestinal: normal bowel sounds, non tender, soft Back: normal inspection, no CVA tenderness, no vertebral tenderness Extremities: normal range of motion, no calf tenderness, normal capillary refill, other (Right lower extremity boot in place.) Neurologic/Psychiatric: alert, normal mood/affect, oriented x 3 Assessment/Plan Assessment/Plan Admission Diagnosis/Plan A 67 year old male with a Right closed trimalleolar ankle fracture who is S/P open reduction internal fixation of trimalleolar ankle fracture without fixation of the posterior malleolus, as well an episode of rectal bleeding most likely hemorrhoidal bleed. Hgb 11.9. Will continue with conservative medical management with stool softners as well as fluids to promote soft stools. Will monitor CBC and recheck tomorrow AM. Once patient is discharged will have patient resume high fiber diet and 64 ounces of fluids daily. It was explained to patient that we don't feel like his hemorrhoids are severe enough for surgical intervention. Clinical Quality Measures DVT/VTE Risk/Contraindication: Risk Factor Score Per Nursin RFS Level Per Nursing on Admit: 4+=Very High Copy Copies To 1: ADRY LIRA MD, DUSTIN L APRN Sep 09, 2017 9:30 am
--- NOTE | 2017-09-09 10:07 | Physical Therapy Evaluation ---
PT Evaluation-General Medical Diagnosis Admission Date Sep 07, 2017 at 20:23 Medical Diagnosis: right trimalleolar fracture/dislocation Onset Date: Sep 07, 2017 Therapy Diagnosis Therapy Diagnosis: ROM, strength, debility Height/Weight Height (Feet): 5 Height (Inches): 10.00 Weight (Pounds): 189 Weight (Ounces): 6.0 Precautions Precautions/Isolations: Fall Prevention, Standard Precautions Weight Bear Status Right Lower Extremity: Right Non Weight Bearing Left Lower Extremity: Left Full Weight Bearing Referral Physician: Cortney Reason for Referral: Evaluation/Treatment Medical History Pertinent Medical History: GERD, HTN Reviewed History: Yes Social History Home: Apartment Current Living Status: Alone Entry Into Home: Stairs With Railing PT Steps Into Home: 2 Prior/Core FIM Prior Level of Function Functional [place] Measure 0=Not Assessed/NA 4=Minimal Assistance 1=Total Assistance 5=Supervision or Setup 2=Maximal Assistance 6=Modified [place] 3=Moderate Assistance 7=Complete [place] Bed Mobility: 7 Transfers (B,C,W/C) (FIM): 7 Gait: 7 Locomotion: 7 PT Evaluation-Current Subjective Patient states he is doing alright today and that the ankle pain has not been too bad since the surgery. Pain Numeric Pain Scale: 5-Moderate Pain Location: Right Location Body Site: Ankle Pt/Family Goals Patient wishes to be able to return home in a safe manner. Objective Patient Orientation: Normal For Age Problem Solving: Good Attachments: IV ROM/Strength ROM Upper Extremities WNL ROM Lower Extremities WNL Strength Upper Extremities WNL Strength Lower Extremities L LE- WNL R LE- unable to test Integumentary/Posture Integumentary intact Bowel Incontinence: No Bladder Incontinence: No Neuromuscular (Tone, Coordination, Reflexes) WNL Sensory Vision: Functional Hearing: Functional Hand Dominance: Right Sensation Right Upper Extremit: Intact Sensation Left Upper Extremity: Intact Sensation Right Lower Extremit: Intact Sensation Left Lower Extremity: Intact Transfers Functional [place] Measure 0=Not Assessed/NA 4=Minimal Assistance 1=Total Assistance 5=Supervision or Setup 2=Maximal Assistance 6=Modified [place] 3=Moderate Assistance 7=Complete [place] Transfers (B, C, W/C) (FIM): 5 Scootin Rollin Supine to/from Sit: 5 Sit to/from Stand: 5 Patient can perform all observed transfers with SBA from PT. Gait Mode of Locomotion: Walk Anticipated Mode of Locomotion: Walk Gait (FIM): 4 Distance: 160' Gait Level of Assist: 4 Gait Persons Needed: 1 Gait Assistive Device: FWW Comments/Gait Description Patient walked with FWW and rolling scooter while non WB on R LE. PT was CGA due to unsteady gait while only bearing weight on L LE. Balance Sitting Static: Normal Sitting Dynamic: Normal Standing Static: Normal Standing Dynamic: Normal Assessment/Needs Patient is non WB for the foreseeable future on R LE. PT will work on gait training and strengthening of other extremities to provide more safe ambulation while patient is non WB on R LE. Rehab Potential: Good Equipment Needs FWW, crutches, and/or rolling scooter PT Correction Goals Correction Goals PT Correction Goals Time Frame: Sep 16, 2017 Transfers (B,C,W/C) (FIM): 6 Gait (FIM): 6 Distance: >300' Gait Level of Assist: 6 Gait Assistive Device: FWW, Crutches PT Plan Problem List Problem List: Activity Tolerance, Functional Strength, Safety, Balance, Gait Treatment/Plan Treatment Plan: Continue Plan of Care Treatment Plan: Functional Activity Parul, Functional Strength, Gait, Therapeutic Exercise Treatment Duration: Sep 16, 2017 Frequency: 11 times per week Estimated Hrs Per Day: .5 hour per day Patient and/or Family Agrees t: Yes Safety Risks/Education Patient Education: Gait Training, Safety Issues Teaching Recipient: Patient, Family Teaching Methods: Demonstration, Discussion Response to Teaching: Verbalize Understanding, Return Demonstration Discharge Recommendations Therapy D/C Recommendations: Home Independently Equpiment Recommendations-D/C: Front Wheeled Walker Time/GCodes Time In: 901 Time Out: 933 Total Billed Treatment Time: 32 Total Billed Treatment 1 visit EVM 15 min GT 17 min SLADE RAHMAN PT Sep 09, 2017 10:07
[2017-09-09] MEDS: HYDROcodone/APAP 5 MG/325 MG (LORTAB) TAB PO PRN ×2 (13:24→18:59)
--- NOTE | 2017-09-09 13:37 | Physical Therapy Daily Note ---
PT Daily Note-Current Subjective Patient is on the commode upon PT entering the room. Patient toilets and agrees to PT. He states his ankle is feeling okay this p.m. Pain Numeric Pain Scale: 5-Moderate Pain Location: Right Location Body Site: Ankle Appearance Patient appears in good health. He is left at edge of bed with phone and call light in reach. Mental Status Patient Orientation: Normal For Age Attachments: IV Transfers Functional [place] Measure 0=Not Assessed/NA 4=Minimal Assistance 1=Total Assistance 5=Supervision or Setup 2=Maximal Assistance 6=Modified [place] 3=Moderate Assistance 7=Complete IndependenceIRFPAI Quality Coding Scale 6 Independent with activity with or without an assistive device 5 Patient requires set up or clean up by helper. Patient completes activity by themselves 4 Supervision or touching assist (CGA). [place] provide cues , steadying assist 3 The helper provides less than half the effort to complete the activity 2 The helper provides more than half the effort to complete the activity 1 Dependent. The helper does all the effort to complete an activity 7 Patient refused to complete or attempt activity 9 The patient did not perform the activity before the current illness or injury 88 Not attempted due to Medical conditions or safety concerns Transfers (B, C, W/C) (FIM): 5 Sit to/from Stand: 5 Patient is SBA for sit to/from stand. Patient WB heavily through L LE as his R LE is NWB. Weight Bearing Right Lower Extremity: Right Non Weight Bearing Left Lower Extremity: Left Full Weight Bearing Gait Training Gait (FIM): 5 Distance: 200' Gait Level of Assist: 5 Gait Persons Needed: 1 Gait Assistive Device: FWW Patient walks with FWW. R LE is NWB. Patient is noticeably fatigued in L LE and slightly SOB after walking due to NWB status of R LE. Assessment Current Status: Good Progress Patient has good tolerance for gait and is learning how to more efficiently use assistive device. PT will continue to work on gait training and strengthening to improve ambulation with NWB R LE. PT Medical Liaison Goals Medical Liaison Goals PT Medical Liaison Goals Time Frame: Sep 16, 2017 Transfers (B,C,W/C) (FIM): 6 Gait (FIM): 6 Distance: >300' Gait Level of Assist: 6 Gait Assistive Device: FWW, Crutches PT Plan Problem List Problem List: Activity Tolerance, Functional Strength, Safety, Balance, Gait Treatment/Plan Treatment Plan: Continue Plan of Care Treatment Plan: Functional Activity Parul, Functional Strength, Gait, Safety, Therapeutic Exercise Treatment Duration: Sep 16, 2017 Frequency: 11 times per week Estimated Hrs Per Day: .5 hour per day Patient and/or Family Agrees t: Yes Time/GCodes Time In: 1255 Time Out: 1315 Total Billed Treatment Time: 20 Total Billed Treatment 1 visit GT 20 min SLADE RAHMAN PT Sep 09, 2017 13:37
--- NOTE | 2017-09-09 13:56 | Consultation-Hospitalist ---
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 He was walking down the stairs at his home on the night of 09/07. He had a misstep and everted his right foot. This caused him great pain and he was not able to walk. He called his brother who came over and loaded him up in the vehicle and drove him to the emergency room. He was found to have a trimalleolar fracture dislocation on the right. This was surgically repaired on 09/08. He reports he continues to have pain. He is concerned about his ability to manage as he lives alone. Source: patient Date Seen 09/09/17 Attending Physician Alex Barr MD PCP Giovanni Mandel MD Referring Physician Date of Admission Sep 07, 2017 at 20:23 Home Medications & Allergies Home Medications Reviewed patient Home Medication Reconciliation Form Allergies Allergies Coded Allergies tetracycline (Verified Allergy, Unknown, 09/03/09) Past Guronqp-Iitvdh-Orhsua Hx Patient Social History Marrital Status: single Employed/Student: employed Alcohol Use: Occasionally Uses Number of Drinks Today: EE Alcohol Beverage of Choice: [employer] Recreational Drug Use: No Smoking Status: Never a Smoker 2nd Hand Smoke Exposure: No Physical Abuse Screen: No Sexual Abuse: No Recent Foreign Travel: No Contact w/other who traveled: No Recent Hopitalizations: No Recent Infectious Disease Expo: No Immunizations Up To Date Tetanus Booster (TDap): Less than 5yrs Date of Pneumonia Vaccine: Nov 02, 2011 Seasonal Allergies Seasonal Allergies: No Surgeries Yes (STONE BASKET RETRIEVAL STONES, ABDOMINAL LESION) Coronary Stent Respiratory No Currently Using CPAP: No Currently Using BIPAP: No Cardiovascular Yes (BBB, STENT X1) Hypertension Neurological No Reproductive System Hx Reproductive Disorders: No Genitourinary Yes Benign Prostatic Hyperpl, Kidney Stones Gastrointestinal Yes Gastroesophageal Reflux Musculoskeletal No Endocrine History of Endocrine Disorders: No HEENT History of HEENT Disorders: No Cancer No Psychosocial History of Psychiatric Problem: No Integumentary History of Skin or Integumenta: No Blood Transfusions History of Blood Disorders: No Review of Systems Constitutional: see HPI EENTM: no symptoms reported Respiratory: no symptoms reported Cardiovascular: Hx of Intervention (single stent) Gastrointestinal: no symptoms reported Genitourinary: other (previous kidney stone) Musculoskeletal: see HPI, joint pain, joint swelling Skin: no symptoms reported Psychiatric/Neurological: No Symptoms Reported Physical Exam Physical Exam Vital Signs Vital Sign - Last 12Hours 09/07/17 19:51 Temp 98.7 Pulse 83 Resp 18 B/P (MAP) 161/77 Pulse Ox 95 O2 Delivery Room Air Capillary Refill : Less Than 3 SecondsLess Than 3 Seconds General Appearance: Mild Distress Eyes: Bilateral Eye Normal Inspection HEENT: Normal ENT Inspection Neck: Normal Inspection Cardiovascular: Regular Rate, Rhythm, No Edema, No Gallop, No JVD, No Murmur, Normal Peripheral Pulses Gastrointestinal: Normal Bowel Sounds Back: Normal Inspection Extremity: Other (right foot in long leg ankle immobilizer) Neurologic/Psychiatric: Alert, Oriented x3, No Motor/Sensory Deficits, Normal 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 2.history of hypertension. 3.previous coronary intervention and stenting 1 Assessment and Plan Continue present measures. Analgesics as needed. Offer in IRF eval Clinical Quality Measures DVT/VTE Risk/Contraindication: Risk Factor Score Per Nursin RFS Level Per Nursing on Admit: 4+=Very High HARJIT REYNAGA MD Sep 09, 2017 13:56
--- NOTE | 2017-09-09 14:03 | Anesthesia-General Post-Op ---
General Patient Condition Mental Status/LOC: Same as Preop Cardiovascular: Satisfactory Nausea/Vomiting: Absent Respiratory: Satisfactory Pain: Controlled Complications: Absent Post Op Complications Complications None Follow Up Care/Instructions Patient Instructions None needed. Anesthesia/Patient Condition Patient Condition Patient is doing well, no complaints, stable vital signs, no apparent adverse anesthesia problems. No complications reported per nursing. D/C home per [place] Criteria: No ROSEMARIE ULLOA CRNA Sep 09, 2017 14:02
--- NOTE | 2017-09-09 15:20 | Progress Note-Standard ---
Standard Progress Note Progress Notes/Assess & Plan Time Seen by Provider: 15:19 Progress/Assessment & Plan Care turned to Hospitalist service to arrange discharge planning. Stable for discharge from orthopaedic perspective. CASEY HATFIELD MD Sep 09, 2017 3:20 pm
[2017-09-09] MEDS: KCL 20 MEQ TAB (K-DUR) PO SCH (18:59)
[2017-09-09] MEDS: TRIAMCINOLONE 0.1% CR (KENALOG) 15 GM TUBE TOP SCH (20:55)
[2017-09-09] MEDS ORDERED: NON-FORMULARY MEDICATION 1 EA EA (Potassium Chloride 20 MEQ) PO SCH (21:00)
[2017-09-10] VITALS: BP 139/73
[2017-09-10] MEDS: HYDROcodone/APAP 5 MG/325 MG (LORTAB) TAB PO PRN (03:47)
[2017-09-10 04:00] VITALS: BP 166/82
[2017-09-10 06:00] VITALS: BP 166/82
[2017-09-10 06:23] LABS: MEAN PLATELET VOLUME 9.6 FL (7.4-10.4); RED BLOOD COUNT 3.9 10^6/uL (4.35-5.85); RED CELL DISTRIBUTION WIDTH 14.6 % (10.0-14.5)
[2017-09-10] MEDS ORDERED: PANTOPRAZOLE 40 MG (PROTONIX) TAB PO SCH (07:00)
[2017-09-10 08:00] VITALS: BP 154/79
[2017-09-10] MEDS ORDERED: MILK OF MAGNESIA 400 MG/5 ML 30 ML UDC PO PRN (08:00)
[2017-09-10] MEDS: TRIAMCINOLONE 0.1% CR (KENALOG) 15 GM TUBE TOP SCH (08:44)
[2017-09-10] MEDS ORDERED: BISOPROLOL/HCTZ 5/6.25 MG (ZIAC) TAB PO SCH (09:00)
[2017-09-10] MEDS ORDERED: HYDROCHLOROTHIAZIDE 25 MG (HCTZ) TAB PO SCH (09:00)
[2017-09-10] MEDS ORDERED: ALLOPURINOL 300 MG (ZYLOPRIM) TAB PO SCH (09:00)
[2017-09-10] MEDS ORDERED: MAGNESIUM OXIDE (MAG-OX)400 MG TAB PO SCH (09:00)
[2017-09-10] MEDS ORDERED: PRASUGREL 10 MG (EFFIENT) TABLET PO SCH (09:00)
[2017-09-10] MEDS: DOCUSATE SODIUM 100 MG (COLACE) CAP PO SCH (09:36)
[2017-09-10] MEDS: KCL 20 MEQ TAB (K-DUR) PO SCH (09:36)
[2017-09-10 12:00] VITALS: BP 150/78
--- NOTE | 2017-09-10 12:07 | Physical Therapy Evaluation ---
PT Evaluation-General Medical Diagnosis Admission Date Sep 07, 2017 at 20:23 Medical Diagnosis: right trimalleolar fracture/dislocation Onset Date: Sep 07, 2017 Therapy Diagnosis Therapy Diagnosis: immobilty of R ankle Height/Weight Height (Feet): 5 Height (Inches): 10.00 Weight (Pounds): 189 Weight (Ounces): 6.0 Precautions Precautions/Isolations: Standard Precautions Weight Bear Status Right Lower Extremity: Right Non Weight Bearing Left Lower Extremity: Left Full Weight Bearing Referral Physician: Cortney Reason for Referral: Evaluation/Treatment Medical History Pertinent Medical History: GERD, HTN Reviewed History: Yes Social History Home: Apartment Current Living Status: Alone Entry Into Home: Stairs With Railing PT Steps Into Home: 2 Prior/Core FIM Prior Level of Function Functional [place] Measure 0=Not Assessed/NA 4=Minimal Assistance 1=Total Assistance 5=Supervision or Setup 2=Maximal Assistance 6=Modified [place] 3=Moderate Assistance 7=Complete [place] Bed Mobility: 7 Transfers (B,C,W/C) (FIM): 7 Gait: 7 Locomotion: 7 PT Evaluation-Current Subjective Patient states he is doing okay and that his ankle has not been feeling too bad. He is anxious about feeling safe in the home when dismissed from the hospital. Nurse with SWB and social staff worker are present. Patient approves SWB status that is offered by SWB nurse and social staff worker. Patient agrees to SWB eval. Pain Numeric Pain Scale: 3 Location: Right Location Body Site: Ankle Pt/Family Goals Patient wishes to be able to return home in a safe manner. Objective Patient Orientation: Normal For Age Attachments: IV ROM/Strength ROM Upper Extremities WNL ROM Lower Extremities WNL Strength Upper Extremities WNL Strenght Lower Extremities gross 5/5 bilateral other than hip flexors 4/5 bilaterally, right ankle not tested Integumentary/Posture Integumentary intact Bowel Incontinence: No Bladder Incontinence: No Neuromuscular (Tone, Coordination, Reflexes) NT Sensory Vision: Functional Hearing: Functional Hand Dominance: Right Sensation Right Upper Extremit: Intact Sensation Left Upper Extremity: Intact Sensation Right Lower Extremit: Intact Sensation Left Lower Extremity: Intact Transfers Functional [place] Measure 0=Not Assessed/NA 4=Minimal Assistance 1=Total Assistance 5=Supervision or Setup 2=Maximal Assistance 6=Modified [place] 3=Moderate Assistance 7=Complete [place] Transfers (B, C, W/C) (FIM): 5 Scootin Rollin Supine to/from Sit: 5 Sit to/from Stand: 5 Sit to Lying (QC): 4 Lying to Sitting/Side of Bed(Q: 4 Sit to Stand (QC): 4 Patient performs all bed mobility with SBA from PT. Only requires occasional cues for better or safer techniques with transfers. Gait Does the Patient Walk?: Yes Mode of Locomotion: Walk Anticipated Mode of Locomotion: Walk Gait (FIM): 5 Distance: 300' Walk 50 ft with 2 Turns(QC): 5 Walk 150 ft (QC): 5 Gait Level of Assist: 5 Gait Persons Needed: 1 Comments/Gait Description Patient walks with NWB R LE on rolling scooter. Patient only requires occasional cues on set up in the scooter for better comfort and training on use of brake on scooter. Balance Sitting Static: Normal Sitting Dynamic: Normal Standing Static: Normal Standing Dynamic: Fair Treatment Patient performed LAQs and Hip flexion exercises seated. Assessment/Needs Patient has good tolerance for exercise and ambulation. PT intervention will include therapeutic exercise and ambulation training with assistive device. PT will check later on this date to make sure SWB orders were provided by SWB nurse and social staff worker. Rehab Potential: Good PT Short Term Goals Short Term Goals Time Frame: Sep 17, 2017 Transfers (B,C,W/C) (FIM): 6 Gait (FIM): 6 Gait Distance Comment: >300' Gait Level of Assist: 6 Gait Assistive Device: FWW, Crutches (or knee scooter) PT Plan Problem List Problem List: Activity Tolerance, Functional Strength, Safety, Balance, Gait, Transfer, Bed Mobility, ROM Treatment/Plan Treatment Plan: Continue Plan of Care Treatment Plan: Education, Functional Activity Parul, Functional Strength, Gait , Safety, Therapeutic Exercise, Transfers Treatment Duration: Sep 17, 2017 Frequency: 11 times per week Estimated Hrs Per Day: .25 hour per day (15-30') Patient and/or Family Agrees t: Yes Safety Risks/Education Patient Education: Gait Training, Transfer Techniques, Reviewed Precautions, Correct Positioning, Safety Issues Teaching Recipient: Patient Teaching Methods: Demonstration, Discussion Response to Teaching: Reinforcement Needed Discharge Recommendations Plan Patient will perform bed mobility and transfer training, balance and endurance training, functional strengthening, stair training, gait training, and education , to improve functional mobility and independence at home. Therapy D/C Recommendations: Home Independently, Physical Therapy Home Care, Physical Therapy Outpatient Equpiment Recommendations-D/C: Front Wheeled Walker, Other, Please Explain ( rolling manual scooter) Time/GCodes Time In: 1120 Time Out: 1155 Total Billed Treatment Time: 35 Total Billed Treatment 1 visit EVL 20 min GT 15' TRAVIS GODDARD PT Sep 10, 2017 12:07
--- NOTE | 2017-09-10 13:44 | Progress Note-Hospitalist ---
Standard Progress Note Progress Notes/Assess & Plan Date Seen 09/10/17 Time Seen by Provider: 13:41 Diagnosis Trimalleolar fracture dislocation right ankle. 2.history of hypertension. 3.previous coronary intervention and stenting 1 Assess & Plan/Chief Complaint The patient is beginning to make strides with regard to ambulation. He feels very unsteady and clumsy on the knee walker. We have evaluated and will move him to swing bed status for more physical therapy and prior to discharge as he lives alone. He has some pain but is otherwise feeling well enough. Physical exam: He appears somewhat anxious about change. Lungs are clear to auscultation. CV is regular without murmur. Abdomen is soft. Impression: trimalleolar fracture dislocation with operative reduction and immobilization Plan: Transferred to swing bed for additional physical therapy Labs Laboratory Tests 09/09/17 06:18 09/10/17 06:10 HARJIT REYNAGA MD Sep 10, 2017 13:44
== END 2017-09-10 13:47 | disposition swing bed (61) | DRG 494 ==
LOC: EDUNIT# 19:05 → ER 19:08 → 4TH 20:23
PROVIDERS: ADMIT Orthopaedic Surgery Orthopaedic Surgery of the Spine; ATTEND Orthopaedic Surgery Orthopaedic Surgery of the Spine
PROC: 0SSF04Z Reposition Right Ankle Joint with Internal Fixation Device, Open Approach (ICD-10-PCS; principal; 2017-09-08 12:12)
DX: S82.851A Displaced trimalleolar fracture of right lower leg, initial encounter for closed fracture (principal); I10 Essential (primary) hypertension; K21.9 Gastro-esophageal reflux disease without esophagitis; N40.0 Benign prostatic hyperplasia without lower urinary tract symptoms; K64.1 Second degree hemorrhoids; Z86.018 Personal history of other benign neoplasm; Z87.442 Personal history of urinary calculi; Z95.5 Presence of coronary angioplasty implant and graft; W10.8XXA Fall (on) (from) other stairs and steps, initial encounter; Y92.008 Other place in unspecified non-institutional (private) residence as the place of occurrence of the external cause
CPT/HCPCS: 29515; 36415; 73610; 80048; 85025; 85027; 87081; 93041; 94664; 96361; 96374; 96375

== ENCOUNTER 2017-09-10 11:42 | Inpatient (IN) | payer MEDICARE, OTHER ==
[~2017-09-10 11:42] MED LIST changes: +ACET-168 PO; +CHOL20003 PO; +EZET1TAB65 PO; +FINA5TAB6 PO; +HYDR25TA4 PO; +PANT40TA3 PO; +TR1C15 TOP
[2017-09-10] MEDS ORDERED: APAP 300 MG/CODEINE 30 MG (TYLENOL #3) TAB PO PRN (14:00)
--- NOTE | 2017-09-10 16:10 | Occupational Therapy Eval ---
OT Evaluation-General/PLF Medical Diagnosis Admission Date Sep 10, 2017 at 13:48 Medical Diagnosis: Right Trimalleolar fx/dislocation Onset Date: Sep 07, 2017 Therapy Diagnosis Therapy Diagnosis: Decreased ADL skills Height/Weight Height (Feet): 5 Height (Inches): 10.00 Weight (Pounds): 189 Weight (Ounces): 6.0 Weight Bear Status Weight Bearing Restriction: Non Weight Bearing Location Restriction: RT FOOT Referral Physician: Dr. Conner Referral Reason: Activity Tolerance, Self Care, Evaluation/Treatment, Strengthening/ROM Medical History Pertinent Medical History: GERD, HTN Additional Medical History Coronary stent, HTN, BPH, Kidney stones Current History Pt. fell walking out of brothers house. Reviewed History: Yes Social History Home: Single Level Current Living Status: Alone Entry Into Home: Stairs With Railing Steps Into Home: 2 ADL-Prior Level of Function ADL PLOF Comments Pt. 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 Drive Self: Yes OT Current Status Subjective Pt. reports 3-4 pain in right foot with movement. Appearance Pt. is in bed. Agrees to work with OT. Mental Status/Objective Patient Orientation: Person, Place, Time, Situation Current Hand Dominance: Right Upper Extremity ROM WFL Upper Extremity Strength WFL ADL-Treatment Functional [place] Measure 0=Not Assessed/NA 4=Minimal Assistance 1=Total Assistance 5=Supervision or Setup 2=Maximal Assistance 6=Modified [place] 3=Moderate Assistance 7=Complete IndependenceIRFPAI Quality Coding Scale 6 Independent with activity with or without an assistive device 5 Patient requires set up or clean up by helper. Patient completes activity by themselves 4 Supervision or touching assist (CGA). [place] provide cues , steadying assist 3 The helper provides less than half the effort to complete the activity 2 The helper provides more than half the effort to complete the activity 1 Dependent. The helper does all the effort to complete an activity 7 Patient refused to complete or attempt activity 9 The patient did not perform the activity before the current illness or injury 88 Not attempted due to Medical conditions or safety concerns Eating (FIM): 6 Eating (QC): 6 Lower Body Dressing (FIM): 5 (SBA to doff/don left sock. ) Transfers (B, C, W/C) (FIM): 5 (SBA to transfer supine-sit, sit-stand.) Other Treatments Pt. has knee scooter in room. States that he would like to leave on Friday. Declines bathing at this time. States that he has had no difficulty toileting self, or getting out of bed. Pt. educated in OT goals and need for ADL training and treatment. Pt. agrees to work with OT. Education OT Patient Education: Correct positioning, Modified ADL techniques, Progress toward Goal/Update tx plan, Purpose of tx/functional activities, Reviewed precautions, Rehab process, Transfer techniques Teaching Recipient: Patient Teaching Methods: Demonstration, Discussion Response to Teaching: Verbalize Understanding, Return Demonstration OT Short Term Goals Short Term Goals 1=Demonstrate adherence to instructed precautions during ADL tasks. 2=Patient will verbalize/demonstrate understanding of assistive devices/ modifications for ADL. 3=Patient will improve strength/tolerance for activity to enable patient to perform ADL's. OT Animal Caretaker Goals Animal Caretaker Goals Time Frame: Sep 17, 2017 Eating (FIM): 6 Eating (QC): 6 Groomin Oral Hygiene (QC): 6 Bathing(FIM): 5 Upper Body Dressing(FIM): 6 Lower Body Dressing(FIM): 6 Toileting(FIM): 6 Toileting Hygiene (QC): 6 Transfers (B,C,W/C) (FIM): 6 Toilet/Commode Transfer(FIM): 6 Toilet/Commode Transfer (QC): 6 Shower Transfer(FIM): 5 Additional Goals: 1-Demonstrate ADL Tasks, 2-Verbalize Understanding, 3- ImproveStrength/Parul 1=Demonstrate adherence to instructed precautions during ADL tasks. 2=Patient will verbalize/demonstrate understanding of assistive devices/ modifications for ADL. 3=Patient will improve strength/tolerance for activity to enable patient to perform ADL's. OT Education/Plan Problem List/Assessment Assessment: Decreased Activ Tolerance, Impaired I ADL's, Impaired Self-Care Skills Discharge Recommendations Plan/Recommendations: Continue POC Therapy D/C Recommendations: Home Independently, Occupational Therapy Home Care Treatment Plan/Plan of Care Treatment,Training & Education: Yes Patient would benefit from OT for education, treatment and training to promote independence in ADL's, mobility, safety and/or upper extremity function for ADL' s. Plan of Care: ADL Retraining, Functional Mobility Treatment Duration: Sep 17, 2017 Frequency: 5 times per week Estimated Hrs Per Day: .5 hour per day Agreement: Yes Rehab Potential: Good Time/GCodes Start Time: 15:00 Stop Time: 15:25 Total Time Billed (hr/min): 25 Billed Treatment Time 1, EVM x 10minutes, ADL x 15minutes YOUNG ALEXANDRA OT Sep 10, 2017 16:10
--- NOTE | 2017-09-10 16:56 | Physical Therapy Daily Note ---
PT Daily Note-Current Subjective Patient is seated edge of bed upon Pt entering the room. He states his ankle is a little more sore this p.m. due to not taking pain meds. He agrees to PT Pain Numeric Pain Scale: 4 Location: Right Location Body Site: Ankle Appearance Patient is left seated edge of bed with call light and phone in reach. Mental Status Patient Orientation: Normal For Age Transfers Functional [place] Measure 0=Not Assessed/NA 4=Minimal Assistance 1=Total Assistance 5=Supervision or Setup 2=Maximal Assistance 6=Modified [place] 3=Moderate Assistance 7=Complete IndependenceIRFPAI Quality Coding Scale 6 Independent with activity with or without an assistive device 5 Patient requires set up or clean up by helper. Patient completes activity by themselves 4 Supervision or touching assist (CGA). [place] provide cues , steadying assist 3 The helper provides less than half the effort to complete the activity 2 The helper provides more than half the effort to complete the activity 1 Dependent. The helper does all the effort to complete an activity 7 Patient refused to complete or attempt activity 9 The patient did not perform the activity before the current illness or injury 88 Not attempted due to Medical conditions or safety concerns Transfers (B, C, W/C) (FIM): 4 Sit to/from Stand: 4 Patient performs sit to stand with CGA from PT for safety. Weight Bearing Right Lower Extremity: Right Non Weight Bearing Left Lower Extremity: Left Full Weight Bearing Gait Training Does the Patient Walk?: Yes Gait (FIM): 5 Distance: 400' Gait Level of Assist: 5 Gait Persons Needed: 1 Patient ambulates with manual rolling scooter with PT SBA. Exercises Seated Therapy Exercises: Long arc quads, Hip flexion Seated Reps: 20 Assessment Current Status: Fair Progress Patient is still weary of going home this week on his own. PT will progress interventions to improve functional strength as well as improving ambulation with assistive device. PT Plan Problem List Problem List: Activity Tolerance, Functional Strength, Safety, Balance, Gait Treatment/Plan Treatment Plan: Continue Plan of Care Treatment Plan: Bed Mobility, Education, Functional Activity Parul, Functional Strength, Gait, Safety, Therapeutic Exercise, Transfers Treatment Duration: Sep 17, 2017 Frequency: 11 times per week Estimated Hrs Per Day: .5 hour per day Patient and/or Family Agrees t: Yes Safety Risks/Education Patient Education: Gait Training, Reviewed Precautions, Correct Positioning, Safety Issues Teaching Recipient: Patient Teaching Methods: Demonstration, Discussion Response to Teaching: Verbalize Understanding, Return Demonstration Time/GCodes Time In: 1615 Time Out: 1630 Total Billed Treatment Time: 15 Total Billed Treatment 1 visit GT 15 min TRAVIS GODDARD PT Sep 10, 2017 16:56
[2017-09-10 17:16] VITALS: BP 147/74
[2017-09-10] MEDS: HYDROcodone/APAP 5 MG/325 MG (LORTAB) TAB PO PRN (18:07)
--- NOTE | 2017-09-10 18:12 | Progress Note (SOAP) ---
Subjective Date Seen by Provider: Sep 10, 2017 Time Seen by Provider: 17:00 Subjective/Events-last exam Patient seen with Dr. Rogel. Patient reports doing well. Still having episodes of blood in stool with BMs. No N/V. No fever/chills. Tolerating diet, but reports not eating much. Reports he they are planning on sending him home on Friday. Objective Exam Vital Signs Date Time Temp Pulse Resp B/P (MAP) Pulse Ox O2 Delivery O2 Flow Rate FiO2 09/10/17 17:16 100.0 77 20 147/74 95 Capillary Refill : General Appearance: No Apparent Distress, WD/WN HEENT: PERRL/EOMI Neck: Full Range of Motion, Normal Inspection, Non Tender, Supple Respiratory: Chest Non Tender, Lungs Clear, Normal Breath Sounds, No Accessory Muscle Use, No Respiratory Distress Cardiovascular: Regular Rate, Rhythm, No Edema Gastrointestinal: normal bowel sounds, non tender, soft Extremity: Normal Capillary Refill, No Calf Tenderness, Other (Right lower extremity boot in place.) Neurologic/Psychiatric: Alert, Oriented x3 Skin: Normal Color, Warm/Dry Lymphatic: No Adenopathy Assessment/Plan Assessment/Plan Assess & Plan/Chief Complaint A 67 year old male with a Right closed trimalleolar ankle fracture who is S/P open reduction internal fixation of trimalleolar ankle fracture without fixation of the posterior malleolus, as well an episode of rectal bleeding most likely hemorrhoidal bleed. Hgb 10.6. Will continue with conservative medical management with stool softners as well as fluids to promote soft stools. Will monitor CBC and recheck in AM. Ok to hold anticoagulation for now. Once patient is discharged will have patient resume high fiber diet and 64 ounces of fluids daily. It was explained to patient that we don't feel like his hemorrhoids are severe enough for surgical intervention. Clinical Quality Measures DVT/VTE Risk/Contraindication: Risk Factor Score Per Nursin MARCO LUTHER INTERSTATE BUS DRIVER Sep 10, 2017 6:12 pm
[2017-09-10] MEDS ORDERED: INFLUENZA TRIvalent 2017-2018 0.5 ML/45 MCG SYR IM ONE (21:00)
[2017-09-10] MEDS ORDERED: TRIAMCINOLONE 0.1% CR (KENALOG) 15 GM TUBE TOP SCH (21:00)
[2017-09-10] MEDS: DOCUSATE SODIUM 100 MG (COLACE) CAP PO SCH (21:05)
[2017-09-10] MEDS: KCL 20 MEQ TAB (K-DUR) PO SCH (21:05)
[2017-09-11] MEDS: HYDROcodone/APAP 5 MG/325 MG (LORTAB) TAB PO PRN ×2 (02:34→21:02)
[2017-09-11 05:06] VITALS: BP 154/81
[2017-09-11 06:24] LABS: MEAN PLATELET VOLUME 9.5 FL (7.4-10.4); RED BLOOD COUNT 4.21 10^6/uL (4.35-5.85); RED CELL DISTRIBUTION WIDTH 14.4 % (10.0-14.5); WHITE BLOOD COUNT 6.5 10^3/uL (4.3-11.0)
[2017-09-11] MEDS: PRASUGREL 10 MG (EFFIENT) TABLET PO SCH (09:37)
[2017-09-11] MEDS: KCL 20 MEQ TAB (K-DUR) PO SCH ×2 (09:37→20:54)
[2017-09-11] MEDS: BISOPROLOL/HCTZ 5/6.25 MG (ZIAC) TAB PO SCH (09:37)
[2017-09-11] MEDS: HYDROCHLOROTHIAZIDE 25 MG (HCTZ) TAB PO SCH (09:37)
[2017-09-11] MEDS: DOCUSATE SODIUM 100 MG (COLACE) CAP PO SCH ×2 (09:37→20:54)
[2017-09-11] MEDS: ALLOPURINOL 300 MG (ZYLOPRIM) TAB PO SCH (09:37)
--- NOTE | 2017-09-11 11:09 | Occ Therapy Progress Note ---
Therapy Progress Note Patient seen this am by OT for ADL. He refused to bath/dress, stating it had already been done. OT offered shaving and grooming and he agreed but did not have his electric razor. OT offered safety razor and he refused. Stated he would take care of it tomorrow when he goes home. Family present and are encouraging him to go to extended care facility for a few days, but patient refusing. Charges: Visit, refusal. BISMARK EMMANUEL OT Sep 11, 2017 11:09
--- NOTE | 2017-09-11 11:13 | Physical Therapy Daily Note ---
PT Daily Note-Current Subjective Patient states he is feeling good today. He is still nervous about going home tomorrow because he is not sure he can take care of himself. He agrees to PT. Pain Numeric Pain Scale: 0-No Pain Location: No Pain Reported Appearance Patient appears healthy. He is left post tx seated in chair with call light and phone in reach. Mental Status Patient Orientation: Normal For Age Transfers Functional [place] Measure 0=Not Assessed/NA 4=Minimal Assistance 1=Total Assistance 5=Supervision or Setup 2=Maximal Assistance 6=Modified [place] 3=Moderate Assistance 7=Complete IndependenceIRFPAI Quality Coding Scale 6 Independent with activity with or without an assistive device 5 Patient requires set up or clean up by helper. Patient completes activity by themselves 4 Supervision or touching assist (CGA). [place] provide cues , steadying assist 3 The helper provides less than half the effort to complete the activity 2 The helper provides more than half the effort to complete the activity 1 Dependent. The helper does all the effort to complete an activity 7 Patient refused to complete or attempt activity 9 The patient did not perform the activity before the current illness or injury 88 Not attempted due to Medical conditions or safety concerns Transfers (B, C, W/C) (FIM): 5 Sit to/from Stand: 5 Patient performs sit to stand transfer and ambulates onto the rolling scooter with SBA from PT. Weight Bearing Right Lower Extremity: Right Non Weight Bearing Left Lower Extremity: Left Full Weight Bearing Gait Training Does the Patient Walk?: Yes Gait (FIM): 6 Distance: >600' Gait Level of Assist: 6 Patient ambulates safely with manual rolling scooting. He states he plans to rent one upon dismissal from the hospital. Exercises Seated Therapy Exercises: Long arc quads, Hip flexion, Glut set, Tricep Seated Reps: 20 Assessment Current Status: Good Progress Patient safely ambulates in the manual rolling scooter. PT will progress exercise interventions to improve whole body functional strength as he will be NWB through the R LE for the foreseeable future. PT Plan Problem List Problem List: Activity Tolerance, Functional Strength, Safety, Balance, Gait, Transfer Treatment/Plan Treatment Plan: Continue Plan of Care Treatment Plan: Bed Mobility, Education, Functional Activity Parul, Functional Strength, Gait, Safety, Therapeutic Exercise, Transfers Treatment Duration: Sep 17, 2017 Frequency: 11 times per week Estimated Hrs Per Day: .5 hour per day Patient and/or Family Agrees t: Yes Discharge Recommendations Equpiment Recommendations-D/C: Other, Please Explain (manual rolling scooter) Time/GCodes Time In: 842 Time Out: 902 Total Billed Treatment Time: 20 Total Billed Treatment 1 visit FA 20 min SLADE RAHMAN PT Sep 11, 2017 11:13
--- NOTE | 2017-09-11 14:00 | Physical Therapy Daily Note ---
PT Daily Note-Current Subjective Patient is on the toilet upon PT entering the room. He rises to manual rolling scooter and agrees to PT. Pain Numeric Pain Scale: 3 Comment: Ankle was a little more sore from it not being elevated all morning. Appearance Patient appears healthy. He is left supine in bed with call light and phone in reach. Mental Status Patient Orientation: Normal For Age Transfers Functional [place] Measure 0=Not Assessed/NA 4=Minimal Assistance 1=Total Assistance 5=Supervision or Setup 2=Maximal Assistance 6=Modified [place] 3=Moderate Assistance 7=Complete IndependenceIRFPAI Quality Coding Scale 6 Independent with activity with or without an assistive device 5 Patient requires set up or clean up by helper. Patient completes activity by themselves 4 Supervision or touching assist (CGA). [place] provide cues , steadying assist 3 The helper provides less than half the effort to complete the activity 2 The helper provides more than half the effort to complete the activity 1 Dependent. The helper does all the effort to complete an activity 7 Patient refused to complete or attempt activity 9 The patient did not perform the activity before the current illness or injury 88 Not attempted due to Medical conditions or safety concerns Transfers (B, C, W/C) (FIM): 5 Scootin Rollin Supine to/from Sit: 5 Sit to/from Stand: 5 Patient performs all transfers with SBA. Weight Bearing Right Lower Extremity: Right Non Weight Bearing Left Lower Extremity: Left Full Weight Bearing Gait Training Gait (FIM): 6 Distance: >500' Gait Level of Assist: 6 Patient ambulates with manual rolling walker mod I. Stair Training Stair Training: Handrails/: 1 handrail (1), uses walker Stairs (FIM): 1 #of Steps: 3 Stairs: Pattern: Hops Level of Assist: 4 Patient used walker and 1 handrail to simulate holding onto a person assisting him as he ascends and descends stairs. PT was CGA for safety. Patient hops to each step due to NWB status of R LE. Assessment Current Status: Good Progress Patient has good tolerance and safety with assistive device ambulation. PT will continue to work on stair ambulation to assure patient that he will be safe when dismissed from the hospital. PT Plan Problem List Problem List: Activity Tolerance, Functional Strength, Safety, Balance, Gait, Transfer Treatment/Plan Treatment Plan: Bed Mobility, Education, Functional Activity Parul, Functional Strength, Gait, Safety, Therapeutic Exercise, Transfers Treatment Duration: Sep 17, 2017 Frequency: 11 times per week Estimated Hrs Per Day: .5 hour per day Patient and/or Family Agrees t: Yes Time/GCodes Time In: 1325 Time Out: 1343 Total Billed Treatment Time: 18 Total Billed Treatment 1 visit FA 18 min SLADE RAHMAN PT Sep 11, 2017 14:00
--- NOTE | 2017-09-11 14:05 | Physical Therapy Daily Note ---
PT Daily Note-Current Subjective Patient is on the toilet upon PT entering the room. He rises to manual rolling scooter and agrees to PT. Pain Numeric Pain Scale: 3 Comment: Ankle was a little more sore from it not being elevated all morning. Appearance Patient appears healthy. He is left supine in bed with call light and phone in reach. Mental Status Patient Orientation: Normal For Age Attachments: IV Transfers Functional [place] Measure 0=Not Assessed/NA 4=Minimal Assistance 1=Total Assistance 5=Supervision or Setup 2=Maximal Assistance 6=Modified [place] 3=Moderate Assistance 7=Complete IndependenceIRFPAI Quality Coding Scale 6 Independent with activity with or without an assistive device 5 Patient requires set up or clean up by helper. Patient completes activity by themselves 4 Supervision or touching assist (CGA). [place] provide cues , steadying assist 3 The helper provides less than half the effort to complete the activity 2 The helper provides more than half the effort to complete the activity 1 Dependent. The helper does all the effort to complete an activity 7 Patient refused to complete or attempt activity 9 The patient did not perform the activity before the current illness or injury 88 Not attempted due to Medical conditions or safety concerns Transfers (B, C, W/C) (FIM): 5 Scootin Supine to/from Sit: 5 Sit to/from Stand: 5 Patient performs all transfers with SBA. Weight Bearing Right Lower Extremity: Right Non Weight Bearing Left Lower Extremity: Left Full Weight Bearing Gait Training Does the Patient Walk?: Yes Gait (FIM): 6 Distance: >500' Gait Level of Assist: 6 Patient ambulates with manual rolling walker mod I./knee scooter Stair Training Stair Training: Handrails/: 1 handrail, uses walker Stairs (FIM): 1 #of Steps: 3 Stairs: Pattern: Hops Level of Assist: 4 Patient used walker and 1 handrail to simulate holding onto a person assisting him as he ascends and descends stairs. PT was CGA for safety. Patient hops to each step due to NWB status of R LE. Assessment Current Status: Good Progress Patient has good tolerance and safety with assistive device ambulation. PT will continue to work on stair ambulation to assure patient that he will be safe when dismissed from the hospital. PT Custodial Goals Crawler Tractor Operator Goals Rollin PT Plan Problem List Problem List: Activity Tolerance, Functional Strength, Safety, Balance, Gait, Transfer Treatment/Plan Treatment Plan: Continue Plan of Care Treatment Plan: Bed Mobility, Education, Functional Activity Parul, Functional Strength, Gait, Safety, Therapeutic Exercise, Transfers Treatment Duration: Sep 17, 2017 Frequency: 11 times per week Estimated Hrs Per Day: .5 hour per day Patient and/or Family Agrees t: Yes Time/GCodes Time In: 1325 Time Out: 1343 Total Billed Treatment Time: 18 Total Billed Treatment 1 visit FA 18 min SLADE RAHMAN PT Sep 11, 2017 14:05
[2017-09-11 17:45] VITALS: BP 157/86
[2017-09-11 20:13] VITALS: BP 147/80
[2017-09-12 05:26] VITALS: BP 152/83
[2017-09-12] MEDS: BISOPROLOL/HCTZ 5/6.25 MG (ZIAC) TAB PO SCH (08:22)
[2017-09-12] MEDS: KCL 20 MEQ TAB (K-DUR) PO SCH (08:22)
[2017-09-12] MEDS: ALLOPURINOL 300 MG (ZYLOPRIM) TAB PO SCH (08:22)
[2017-09-12] MEDS: DOCUSATE SODIUM 100 MG (COLACE) CAP PO SCH (08:22)
[2017-09-12] MEDS: PRASUGREL 10 MG (EFFIENT) TABLET PO SCH (08:22)
[2017-09-12] MEDS: HYDROCHLOROTHIAZIDE 25 MG (HCTZ) TAB PO SCH (08:22)
--- NOTE | 2017-09-12 09:37 | Physical Therapy Daily Note ---
PT Daily Note-Current Subjective Patient is laying in bed upon PT entering the room. He states he is doing okay but did not sleep very well. He agrees to PT. Pain Numeric Pain Scale: 0-No Pain Location: No Pain Reported Appearance Patient appears healthy. He is left post tx seated edge of bed with call light and phone in reach. Mental Status Patient Orientation: Normal For Age Transfers Functional [place] Measure 0=Not Assessed/NA 4=Minimal Assistance 1=Total Assistance 5=Supervision or Setup 2=Maximal Assistance 6=Modified [place] 3=Moderate Assistance 7=Complete IndependenceIRFPAI Quality Coding Scale 6 Independent with activity with or without an assistive device 5 Patient requires set up or clean up by helper. Patient completes activity by themselves 4 Supervision or touching assist (CGA). [place] provide cues , steadying assist 3 The helper provides less than half the effort to complete the activity 2 The helper provides more than half the effort to complete the activity 1 Dependent. The helper does all the effort to complete an activity 7 Patient refused to complete or attempt activity 9 The patient did not perform the activity before the current illness or injury 88 Not attempted due to Medical conditions or safety concerns Transfers (B, C, W/C) (FIM): 5 Scootin Roll Left to Right (QC): 5 Supine to/from Sit: 5 Sit to/from Stand: 5 Sit to Lying (QC): 5 Sit to Stand (QC): 5 Chair/[id number] Xfer(QC): 5 Patient is SBA for all transfers. Patient completes activity by themselves only needing help with set up from PT. Weight Bearing Right Lower Extremity: Right Non Weight Bearing Left Lower Extremity: Left Full Weight Bearing Gait Training Does the Patient Walk?: Yes Gait (FIM): 6 Distance: >300' Walk 50 ft with 2 Turns(QC): 5 Walk 150 ft (QC): 5 Gait Level of Assist: 6 Patient ambulates a manual rolling scooter with mod I. Stair Training Stairs (FIM): 4 #of Steps: 6 Stairs: Pattern: Hops Level of Assist: 4 Patient ambulates stairs with crutches. Patient is educated on proper technique ambulating stairs with crutches. He performs stair ambulation with steadying to CGA from PT. Assessment Current Status: Good Progress Patient is still unsure of ambulating stairs independently. He states he will have someone with him at home when navigating stairs until he feels safe. PT has been informed that patient is expected to be dismissed from hospital today. PT Halfway Goals Commercial Real Estate Manager Goals Rollin PT Plan Problem List Problem List: Activity Tolerance, Functional Strength, Safety, Transfer Treatment/Plan Treatment Plan: Discontinue PT, goals met Treatment Plan: Bed Mobility, Education, Functional Activity Parul, Functional Strength, Gait, Safety, Therapeutic Exercise, Transfers Treatment Duration: Sep 17, 2017 Frequency: 11 times per week Estimated Hrs Per Day: .5 hour per day Patient and/or Family Agrees t: Yes Patient is to be D/C'd from PT. Safety Risks/Education Patient Education: Gait Training, Transfer Techniques, Correct Positioning, Safety Issues Teaching Recipient: Patient Teaching Methods: Demonstration, Discussion Response to Teaching: Verbalize Understanding, Return Demonstration Discharge Recommendations Therapy D/C Recommendations: Home Independently Equpiment Recommendations-D/C: Crutches, Front Wheeled Walker Time/GCodes Time In: 827 Time Out: 857 Total Billed Treatment Time: 30 Total Billed Treatment 1 visit FA x 2 30 min SLADE RAHMAN PT Sep 12, 2017 09:37
[2017-09-12] MEDS ORDERED: HYDR-3812 PO (10:56)
--- NOTE | 2017-09-12 10:59 | D/C HH Face to Face Order ---
D/C Face to Face Orders Instructions for Patient Patient Instructions/FollowUp: Maintain follow up appt with ortho as instructed Maintain services Physician to follow Patient: Dr Eduard Mandel Discharge Diet for Home: No Restrictions Patient Problems: Right ankle fracture Patient Data-Allergies,Ht & Wt Patient Allergies: Coded Allergies: tetracycline (Verified Allergy, Unknown, 09/03/09) Height (Feet): 5 Height (Inches): 10.00 Weight (Pounds): 189 Weight (Ounces): 6.0 Home Health Need/Face to Face Date of Face to Face: Sep 12, 2017 Clinical Findings: Non or partial weight bearing, Pain with ambulation, Unsteady gait I have seen Pt [id number]: Yes Discharged To: Home Diagnosis/Conditions: Right ankle fracture Problems/Diagnosis/Condition: Patient is Homebound due to: [place] fall risk due to instabilty, Pain w/ ambulation Homebound Status Due to the above stated illness, injury or surgical procedure (medical condition or diagnosis) and associated clinical findings, the patient is homebound because of his/her inability to leave home except with aid of a supportive device and/or person AND leaving the home requires a considerable and taxing effort or is medically contraindicated. Pt req the following assistanc: Walker Home Health Nursing Orders Home Health Services Order: Nursing Services, Guest Experience Specialist-Evaluate & Treat, Physical Therapy-Evaluate & Treat Certify Stmt I certify that this patient is under my care and that I, a nurse practitioner or a physician; a corporate legal assistant working with me, had a face to face encounter that - meets the physician face to face encounter requirements with this patient as dated. LEONELA DELGADO DO Sep 12, 2017 10:59
--- NOTE | 2017-09-12 11:44 | Discharge Summary-Hospitalist ---
Diagnosis/Chief Complaint Date of Admission Sep 10, 2017 at 13:48 Date of Discharge Discharge Date: Sep 12, 2017 Admission Diagnosis Debility following ankle fracture repair Discharge Summary Discharge Physical Examination Allergies: Coded Allergies: tetracycline (Verified Allergy, Unknown, 09/03/09) Vitals & I&Os Vital Signs Date Time Temp Pulse Resp B/P (MAP) Pulse Ox O2 Delivery O2 Flow Rate FiO2 09/12/17 08:35 Room Air 09/12/17 05:26 98.2 74 19 152/83 96 Hospital Course Pt was placed in swing bed status due to severe debility following ankle fracture repair and living alone without help for ADL's. Pt was maintained on home meds and pain meds and overall had a very uncomplicated hospital course and was deemed strong enough to return home with HH. Discharge Home Medications: Active Scripts Active Hydrocodon -Acetaminophen 5-325 (Hydrocodone/Acetaminophen) 1 Each Tablet 1-2 Tab PO Q4H PRN Reported Hydrochlorothiazide 25 Mg Tablet 25 Mg PO DAILY Potassium Chloride 10 Meq Capsule.er 20 Meq PO BID TAKES 2 (10MEQ) CAPSULES Effient (Prasugrel HCl) 10 Mg Tablet 10 Mg PO DAILY Triamcinolone Acetonide 0.1% Cream (Triamcinolone Acet) 15 Gm Cr TOP BID Finasteride 5 Mg Tablet 5 Mg PO MOWEFR Ezetimibe-Simvastatin 10-20 mg (Ezetimibe/Simvastatin) 1 Each Tablet 1 Tab PO HS Pantoprazole Sodium 40 Mg Tablet.dr 40 Mg PO DAILY Bisoprolol-Hctz 5-6.25 mg Tab (Bisoprolol Fumarate/Hctz) 1 Each Tablet 1 Tab PO DAILY Allopurinol 300 Mg Tablet 300 Mg PO DAILY Acetaminophen Extra Strength (Acetaminophen) 500 Mg Tablet 1,000 Mg PO Q4H PRN TAKES 2 (500MG) TABLETS Centrum Silver Tablet (Multivit-Min/FA/Lycopene/Lut) 1 Each Tablet 1 Tab PO DAILY Vitamin D3 (Cholecalciferol (Vitamin D3)) 2,000 Unit Capsule 2,000 Unit PO DAILY Magnesium Oxide 400 Mg Tablet 400 Mg PO DAILY Instructions to patient/family Please see electronic discharge instructions given to patient. Clinical Quality Measures DVT/VTE Risk/Contraindication: Risk Factor Score Per Nursin LEONELA DELGADO DO Sep 12, 2017 11:44
[2017-09-12 16:24] VITALS: BP 152/83
--- NOTE | 2017-09-15 12:22 | Therapy Team Discharge Summary ---
Therapy Discharge Summary Discharge Recommendations Date of Discharge Sep 12, 2017 at 16:25 Therapy D/C Recommendations: Home Independently, Occupational Therapy Home Care Occupational Therapy Pt. seen for initial evaluation to determine occupational therapy needs following ankle fx. At evaluation, pt. required SBA for LE dressing and transfers. Attempted one more time to assess pt. and work on ADL skills. Pt. declined at that time. Pt. has discharged home with family support. Do recommend home health OT to work on independence within the home for daily skills and safety. Pt. has knee scooter and would benefit from walker as needed. Decreased Activ Tolerance, Impaired I ADL's, Impaired Self-Care Skills PT Classification Control Clerk Goals Assisted Goals Rollin OT Assisted Goals Classification Control Clerk Goals Time Frame: Sep 17, 2017 Eating (FIM): 6 Eating (QC): 6 Groomin Oral Hygiene (QC): 6 Bathing(FIM): 5 Upper Body Dressing(FIM): 6 Lower Body Dressing(FIM): 6 Toileting(FIM): 6 Toileting Hygiene (QC): 6 Transfers (B,C,W/C) (FIM): 6 Toilet/Commode Transfer(FIM): 6 Toilet/Commode Transfer (QC): 6 Shower Transfer(FIM): 5 Additional Goals: 1-Demonstrate ADL Tasks, 2-Verbalize Understanding, 3- ImproveStrength/Parul 1=Demonstrate adherence to instructed precautions during ADL tasks. 2=Patient will verbalize/demonstrate understanding of assistive devices/ modifications for ADL. 3=Patient will improve strength/tolerance for activity to enable patient to perform ADL's. YOUNG ALEXANDRA OT Sep 15, 2017 12:22
--- NOTE | 2017-09-16 11:25 | Physical Therapy Evaluation ---
PT Evaluation-General Medical Diagnosis Admission Date Sep 10, 2017 at 13:48 Medical Diagnosis: Right Trimalleolar fx/dislocation Onset Date: Sep 07, 2017 Therapy Diagnosis Therapy Diagnosis: impaired mobility, strength, endurance Height/Weight Height (Feet): 5 Height (Inches): 10.00 Weight (Pounds): 189 Weight (Ounces): 6.0 Precautions Precautions/Isolations: Fall Prevention, Standard Precautions Weight Bear Status Right Lower Extremity: Right Non Weight Bearing Left Lower Extremity: Left Full Weight Bearing Referral Physician: Dr. Conner Reason for Referral: Evaluation/Treatment Medical History Pertinent Medical History: GERD, HTN Reviewed History: Yes Social History Home: Single Level Current Living Status: Alone Entry Into Home: Stairs With Railing PT Steps Into Home: 2 Prior/Core FIM Prior Level of Function Functional [place] Measure 0=Not Assessed/NA 4=Minimal Assistance 1=Total Assistance 5=Supervision or Setup 2=Maximal Assistance 6=Modified [place] 3=Moderate Assistance 7=Complete [place] Bed Mobility: 7 Transfers (B,C,W/C) (FIM): 7 Gait: 7 Locomotion: 7 PT Evaluation-Current Subjective Patient states he is doing okay and that his ankle has not been feeling too bad. He is anxious about feeling safe in the home when dismissed from the hospital. Patient was approved for SWB eval and patient agrees to eval. Pain Numeric Pain Scale: 3 Location: Right Location Body Site: Ankle Pt/Family Goals Patient wishes to be able to return home in a safe manner. Objective Patient Orientation: Normal For Age Attachments: IV ROM/Strength ROM Upper Extremities WNL ROM Lower Extremities WNL Strength Upper Extremities WNL Strenght Lower Extremities gross 5/5 bilateral other than hip flexors 4/5 bilaterally, right ankle not tested Integumentary/Posture Integumentary intact Bowel Incontinence: No Bladder Incontinence: No Neuromuscular (Tone, Coordination, Reflexes) NT Sensory Hand Dominance: Right Sensation Right Upper Extremit: Intact Sensation Left Upper Extremity: Intact Sensation Right Lower Extremit: Intact Sensation Left Lower Extremity: Intact Transfers Functional [place] Measure 0=Not Assessed/NA 4=Minimal Assistance 1=Total Assistance 5=Supervision or Setup 2=Maximal Assistance 6=Modified [place] 3=Moderate Assistance 7=Complete [place] Transfers (B, C, W/C) (FIM): 5 Scootin Rollin Supine to/from Sit: 5 Sit to/from Stand: 5 Sit to Lying (QC): 4 Lying to Sitting/Side of Bed(Q: 4 Sit to Stand (QC): 4 Patient performs all bed mobility with SBA from PT. He only requires occasional cues for more safe techniques with transfers. Gait Does the Patient Walk?: Yes Mode of Locomotion: Walk Anticipated Mode of Locomotion: Walk Gait (FIM): 5 Distance: 300' Walk 50 ft with 2 Turns(QC): 4 Walk 150 ft (QC): 4 Gait Level of Assist: 5 Gait Persons Needed: 1 Comments/Gait Description Patient walks with NWB R LE on rolling scooter. Patient only requires occasional cues on set up in the scooter for better comfort and training on use of brake on scooter. Balance Sitting Static: Normal Sitting Dynamic: Normal Standing Static: Normal Standing Dynamic: Fair Treatment Patient performed LAQs and hip flexion exercises seated. Assessment/Needs Patient has good tolerance for exercise and ambulation. PT intervention will include therapeutic exercise and ambulation training with assistive device. Patient has good outlook for recovery. Rehab Potential: Good PT Short Term Goals Short Term Goals Time Frame: Sep 17, 2017 Transfers (B,C,W/C) (FIM): 6 Gait (FIM): 6 Gait Distance Comment: >300' Gait Level of Assist: 6 Gait Assistive Device: FWW, Crutches (or manual knee scooter) PT Plan Problem List Problem List: Activity Tolerance, Functional Strength, Safety, Balance, Gait, Transfer, Bed Mobility, ROM Treatment/Plan Treatment Plan: Continue Plan of Care Treatment Plan: Bed Mobility, Education, Functional Activity Parul, Functional Strength, Gait, Safety, Therapeutic Exercise, Transfers Treatment Duration: Sep 17, 2017 Frequency: 11 times per week Estimated Hrs Per Day: .5 hour per day (15-30') Patient and/or Family Agrees t: Yes Safety Risks/Education Patient Education: Gait Training, Transfer Techniques, Reviewed Precautions, Correct Positioning, Safety Issues Teaching Recipient: Patient Teaching Methods: Demonstration, Discussion Response to Teaching: Reinforcement Needed Discharge Recommendations Plan Patient will perform bed mobility and transfer training, balance and endurance training, functional strengthening, stair training, gait training, and education , to improve functional mobility and independence at home. Therapy D/C Recommendations: Home Independently, Physical Therapy Home Care, Physical Therapy Outpatient Equpiment Recommendations-D/C: Front Wheeled Walker, Other, Please Explain ( manual rolling scooter) Time/GCodes Time In: 1120 Time Out: 1155 Total Billed Treatment Time: 35 Total Billed Treatment 1 visit EVL 20 min GT 15 min This SWB Evaluation was performed on September 10, 2017 TRAVIS GODDARD PT Sep 16, 2017 11:25
== END 2017-09-12 16:25 | disposition home health service (06) | DRG 561 ==
LOC: 4TH 13:48
PROVIDERS: ADMIT Internal Medicine; ATTEND Internal Medicine
DX: S82.851D Displaced trimalleolar fracture of right lower leg, subsequent encounter for closed fracture with routine healing (principal); I10 Essential (primary) hypertension; K21.9 Gastro-esophageal reflux disease without esophagitis; N40.0 Benign prostatic hyperplasia without lower urinary tract symptoms; K64.1 Second degree hemorrhoids; Z86.018 Personal history of other benign neoplasm; Z87.442 Personal history of urinary calculi; Z95.5 Presence of coronary angioplasty implant and graft; W10.8XXD Fall (on) (from) other stairs and steps, subsequent encounter; Y92.008 Other place in unspecified non-institutional (private) residence as the place of occurrence of the external cause
CPT/HCPCS: 36415; 85027

== ENCOUNTER → 2020-05-02 | Outpatient (CLI) | payer MEDICARE, OTHER ==
[~2020-05-02] MED LIST changes: +ACHD5005 PO; +MAGN400T8 PO
== END ==
LOC: LABNPT 06:49
PROVIDERS: ATTEND Surgery
DX: R50.9 Fever, unspecified (principal); R05 Cough; Z20.828 Contact with and (suspected) exposure to other viral communicable diseases
CPT/HCPCS: 87430; 87804; U0002; 87635

== ENCOUNTER → 2023-10-06 | Outpatient (CLI) | payer OTHER ==
[~2023-10-06] MED LIST changes: +BISO-2 PO; +EZET-57 PO; -EZET1TAB65 PO; +HYDR50TA6 PO; -MAGN400T8 PO; +MGX400T PO; -PANT40TA3 PO; +PANT40TA52 PO; +POTA10CA84 PO
--- NOTE | 2023-10-06 10:07 | Diagnostic Imaging Report ---
History of nephrolithiasis COMPARISON: No priors. There are left renal calculi with dominant stone measured 11.7 mm, the largest stone at the lower pole of the right kidney measured 8.5 mm. There is no bowel obstruction. There are a few bony sclerotic foci in the pelvis involving the right sacrum, the iliac bone and either the acetabulum or right femoral head neck junction. No fracture. There are some scattered mesenteric calcifications. IMPRESSION: Bilateral nephrolithiases, bony sclerosis in the right pelvis, indeterminate, may be bone islands but no priors to confirm their long-term stability. Dictated by: Dictated on workstation # [id number]
== END ==
LOC: RAD 09:18
PROVIDERS: ATTEND Specialist
DX: N20.0 Calculus of kidney (principal)
CPT/HCPCS: 74018